=== PATIENT | female | born 1995 | race African-American/Black ===

== ENCOUNTER 2016-11-04 15:32 | Emergency (ER) | payer SELFPAY ==
[~2016-11-04] VITALS: Ht 162.6 cm; Wt 56.0 kg
[~2016-11-04 15:32] MED LIST: AMOX500C PO; DICL50TA3 PO
[2016-11-04 15:37] VITALS: BP 151/93; PULSE 88; RESP 14; TEMP 98; O2SAT 98
[2016-11-04 17:26] VITALS: BP 133/75; PULSE 66; RESP 18; TEMP 98.7; O2SAT 100
--- NOTE | 2016-11-04 17:43 | PD ---
HPI Chief Complaint: Abdominal Pain Time Seen by Provider: 17:30 Travel History International Travel<30 days: No Contact w/Intl Traveler<30days: No Traveled to known affect area: No History of Present Illness HPI 21-year-old female complains of nausea vomiting abdominal cramping. Patient has intermittent symptoms since this morning. Patient denies any headache. Patient denies any chest pain or shortness of breath. Patient states that abdominal pain is mild cramping pain intermittent pain diffuse over the abdomen. Patient denies any pain radiation. Patient denies any dysuria or frequency. Patient denies any vaginal discharge or bleeding. Patient states that her last menstruation period was on October 17 and only lasted 3 days instead of normally 5 days. PFSH Past Medical History Anxiety: Yes Depression: Yes Cerebrovascular Accident: Yes (2011 STROKE; SEIZURES) Headaches: Yes Reproductive: Yes (OVARIAN CYST) Respiratory: No Seizures: Yes ?: Unknown LMP: 10/17/16 Past Surgical History Appendectomy: Yes Cholecystectomy: Yes Other Surgery: No Social History Alcohol Use: No Tobacco Use: Yes (/2 PPD) Substance Use: No Allergies-Medications (Allergen,Severity, Reaction): Coded Allergies: Dilaudid (Unverified Allergy, Intermediate, Itching, 10/08/16) Reported Meds & Prescriptions Reported Meds & Active Scripts Active No Active Prescriptions or Reported Medications Review of Systems General / Constitutional: No: Fever Eyes: No: Visual changes HENT: No: Headaches Cardiovascular: No: Chest Pain or Discomfort Respiratory: No: Shortness of Breath Gastrointestinal: Positive: Nausea, Vomiting, Abdominal Pain Genitourinary: No: Dysuria Musculoskeletal: No: Pain Skin: No Rash Neurologic: No: Weakness Psychiatric: No: Depression Endocrine: No: Polydipsia Hematologic/Lymphatic: No: Easy Bruising Physical Exam Narrative GENERAL: Well-nourished, well-developed patient. SKIN: Warm and dry. HEAD: Normocephalic. EYES: No scleral icterus. No injection or drainage. NECK: Supple, trachea midline. No JVD or lymphadenopathy. CARDIOVASCULAR: Regular rate and rhythm without murmurs, gallops, or rubs. RESPIRATORY: Breath sounds equal bilaterally. No accessory muscle use. GASTROINTESTINAL: Abdomen soft, non-tender, nondistended. MUSCULOSKELETAL: No cyanosis, or edema. BACK: Nontender without obvious deformity. No CVA tenderness. Neurologic exam normal. Data Data Last Documented VS Vital Signs Date Time Temp Pulse Resp B/P Pulse Ox O2 Delivery O2 Flow Rate FiO2 11/04/16 17:32 18 11/04/16 17:26 98.7 66 133/75 100 Orders Urinalysis - C+S If Indicated (11/04/16 17:42) Ed Urine Pregnancytest Poc (11/04/16 17:42) [facility] Medical Decision Making Medical Screen Exam Complete: Yes Emergency Medical Condition: Yes Interpretation(s) Urine test negative. Differential Diagnosis Differential diagnosis including gastroenteritis, , UTI, gastritis, PUD , pancreatitis, cholecystitis, colitis, UTI, pyelonephritis, nephrolithiasis, appendicitis. Narrative Course 21-year-old female with intermittent abdominal cramping and nausea vomiting. The symptoms started this morning. Diagnosis Primary Impression: Gastroenteritis Patient Instructions: General Instructions Additional Instructions: Take medication as needed. Follow-up with personal physician. Return if persistent problem or worse. Med/Other Pt SpecificInfo: Prescription(s) given Scripts Dicyclomine (Bentyl)20 Mg Tab20 Mg PO TID #10 TAB Ref 0 Prov:Mitchell Gomez MD 11/04/16 Ondansetron Odt (Zofran Odt)4 Mg Tab4 Mg SL Q6HR PRN (Nausea/Vomiting) #10 TAB Prov:Mitchell Gomez MD 11/04/16 Disposition: 01 DISCHARGE HOME Condition: Stable Mitchell Gomez MD Nov 04, 2016 17:43
[2016-11-04] MEDS ORDERED: BENT20TA PO (18:20)
[2016-11-04] MEDS ORDERED: ZOFR4TAB3 SL (18:20)
[2016-11-04 18:22] LABS: BLOOD, URINE NEG (NEG); COMMENT (UR) CULT NOT INDICATED; CULTURE IF INDICATED CULT NOT INDICATED; GLUCOSE,URINE NEG (NEG); KETONE, URINE NEG (NEG); MUCUS URINE MANY /lpf (OCC); NITRITE,URINE NEG (NEG); SQUAMOUS EPITHELIAL CELL URINE 6 /hpf (0-5); URINE COLOR YELLOW (YELLW/STRAW)
== END 2016-11-04 18:58 | disposition home or self-care (01) ==
LOC: NEPA 15:32
DX: K52.9 Noninfective gastroenteritis and colitis, unspecified (principal); R10.9 Unspecified abdominal pain; F17.210 Nicotine dependence, cigarettes, uncomplicated
CPT/HCPCS: 81001; 84703; 99284

== ENCOUNTER 2016-12-17 16:48 | Emergency (ER) | payer SELFPAY ==
[~2016-12-17] VITALS: Ht 162.6 cm; Wt 55.0 kg
[~2016-12-17 16:48] MED LIST changes: -AMOX500C PO; +BENT20TA PO; -DICL50TA3 PO; +ZOFR4TAB3 SL
[2016-12-17 16:50] VITALS: PULSE 80; RESP 16; TEMP 98; O2SAT 98
[2016-12-17 16:53] VITALS: BP 131/90; PULSE 85; RESP 16; O2SAT 98
--- NOTE | 2016-12-17 17:18 | PD ---
HPI Chief Complaint: Fall Time Seen by Provider: 17:10 Travel History International Travel<30 days: No Contact w/Intl Traveler<30days: No Traveled to known affect area: No History of Present Illness HPI 21-year-old female presents for evaluation of back pain. She reports that 3 days ago she was dancing a pole when she fell, landing on her back. Since then she has had persistent pain in her mid and lower back which is aching and worse with movement. She has been using [id number] topical anesthetics but symptoms persist which prompted evaluation. She denies any injury to the extremities, no numbness or tingling or weakness to the extremities, bowel or bladder incontinence or saddle anesthesia. She has no other complaints. [facility] Past Medical History Anxiety: Yes Depression: Yes Cerebrovascular Accident: Yes (2011 STROKE; SEIZURES) Diminished Hearing: No Headaches: Yes Reproductive: Yes (OVARIAN CYST) Respiratory: No Seizures: Yes Tetanus Vaccination: Unknown Influenza Vaccination: No ?: Not LMP: 12/14/16 Past Surgical History Appendectomy: Yes Cholecystectomy: Yes Other Surgery: No Social History Alcohol Use: Yes Tobacco Use: Yes (10/23 PPD) Substance Use: No Allergies-Medications (Allergen,Severity, Reaction): Coded Allergies: Dilaudid (Unverified Allergy, Intermediate, Itching, 12/17/16) Reported Meds & Prescriptions Reported Meds & Active Scripts Active Ibuprofen 800 Mg Tab 800 Mg PO Q8H PRN 10 Days Review of Systems Except as stated in HPI: all other systems reviewed are Neg Physical Exam Narrative GENERAL: Well-nourished female in no acute distress SKIN: Warm and dry. Bruising or soft tissue swelling HEAD: Atraumatic. Normocephalic. EYES: Pupils equal and round. No scleral icterus. No injection or drainage. ENT: No nasal bleeding or discharge. Mucous membranes pink and moist. NECK: Trachea midline. No JVD. CARDIOVASCULAR: Regular rate and rhythm. No murmur appreciated. RESPIRATORY: No accessory muscle use. Clear to auscultation. Breath sounds equal bilaterally. GASTROINTESTINAL: Abdomen soft, non-tender, nondistended. MUSCULOSKELETAL: No obvious deformities mild tenderness to palpation along the mid and lower back. No CVA tenderness. No cervical midline tenderness. Full spontaneous use of the upper and lower extremities. NEUROLOGICAL: Awake and alert. No obvious cranial nerve deficits. Motor grossly within normal limits. Normal speech. Data Data Last Documented VS Vital Signs Date Time Temp Pulse Resp B/P Pulse Ox O2 Delivery O2 Flow Rate FiO2 12/17/16 16:53 85 16 131/90 98 12/17/16 16:50 98.0 Room Air Orders Spine, Lumbar - Ltd (Ap & Lat) (12/17/16 ) Spine, Thoracic-Ap/Lat/Sw(3vw) (12/17/16 ) MDM Medical Decision Making Medical Screen Exam Complete: Yes Emergency Medical Condition: Yes Medical Record Reviewed: Yes Interpretation(s) Thoracic spine x-ray dextroscoliosis, no acute abnormalities Lumbar spine x-ray normal Differential Diagnosis Contusion, strain, hematoma, fracture Narrative Course 21-year-old female presents 3 days after falling off of a pole with mid and lower back pain. X-ray imaging the thoracic and lumbar spine were obtained. X- ray imaging was negative. The patient is being discharged with ibuprofen for what appears to be a back strain. Diagnosis Primary Impression: Back strain Qualified Code: S39.012A - Back strain, initial encounter Additional Instructions: Take medication as prescribed. Take with meals. Avoid strenuous activity. Follow-up with primary care physician in one to 2 weeks. Return for any emergent medical conditions. Med/Other Pt SpecificInfo: Prescription(s) given Scripts Ibuprofen 800 Mg [id number] Mg PO Q8H PRN (PAIN SCALE 6 TO 10) 10 Days Ref 0 Prov:Gt Ruiz MD 12/17/16 Disposition: 01 DISCHARGE HOME Condition: Stable Santosh Mccurdy Dec 17, 2016 17:18
--- NOTE | 2016-12-17 17:56 | RADRPT ---
EXAM DATE/TIME: 12/17/2016 17:46 [facility] COMPARISON: No previous studies available for comparison. INDICATIONS : Generalized Thoracic Spine pain after fall. MEDICAL HISTORY : None. SURGICAL HISTORY : None. ENCOUNTER: Initial ACUITY: 3 days PAIN SCORE: 10/10 LOCATION: Thoracic Spine. FINDINGS: There is normal alignment of the thoracic vertebral bodies. Vertebral body height is maintained. No evidence of fracture or subluxation. Pedicles are intact at all levels. Dextroscoliosis of mid to lower thoracic spine. The paravertebral reflections are not thickened. CONCLUSION: Dextroscoliosis mid to lower thoracic spine. Chin Johns MD on December 17, 2016 at 17:53 Board Certified Radiologist. This report was verified electronically.
--- NOTE | 2016-12-17 17:57 | RADRPT ---
EXAM DATE/TIME: 12/17/2016 17:47 [facility] COMPARISON: No previous studies available for comparison. INDICATIONS : Generalized Lumbar Spine pain after fall. MEDICAL HISTORY : None. SURGICAL HISTORY : None. ENCOUNTER: Initial ACUITY: 3 days PAIN SCORE: 10/10 LOCATION: Lumbar Spine. FINDINGS: Two view examination was performed. There are five non-rib bearing vertebral bodies. The vertebral bodies are in normal alignment without evidence of subluxation or scoliosis. The disc spaces are best ntained. The pedicles are intact. Bony mineralization is normal. No fracture is identified. CONCLUSION: Unremarkable limited examination of the lumbar spine. Chin Johns MD on December 17, 2016 at 17:54 Board Certified Radiologist. This report was verified electronically.
[2016-12-17] MEDS ORDERED: IBUP800T23 PO (17:58)
== END 2016-12-17 18:14 | disposition home or self-care (01) ==
LOC: NEPB 16:48
DX: S39.012A Strain of muscle, fascia and tendon of lower back, initial encounter (principal); W18.39XA Other fall on same level, initial encounter; Y93.89 Activity, other specified; Y92.9 Unspecified place or not applicable; F17.210 Nicotine dependence, cigarettes, uncomplicated
CPT/HCPCS: 72072; 72100; 99283

== ENCOUNTER 2017-01-03 19:43 | Emergency (ER) | payer SELFPAY ==
[~2017-01-03] VITALS: Ht 162.6 cm; Wt 51.4 kg
[~2017-01-03 19:43] MED LIST changes: -BENT20TA PO; +IBUP800T23 PO; -ZOFR4TAB3 SL
[2017-01-03 19:45] VITALS: BP 140/70; PULSE 118; RESP 15; TEMP 100.6; O2SAT 99
[2017-01-03 23:36] VITALS: BP 101/75; PULSE 115; RESP 16; TEMP 101.8; O2SAT 95
[2017-01-04] MEDS ORDERED: SODIUM CHLOR 0.9% 1000 ML INJ 1,000 ML IV ONE (00:13)
[2017-01-04] MEDS ORDERED: SODIUM CHLOR 0.9% 1000 ML INJ 800 ML IV ONE (00:13)
[2017-01-04] MEDS ORDERED: ONDANSETRON HCL 4 MG/2 ML VIAL IV ONE (00:15)
[2017-01-04] MEDS ORDERED: ACETAMINOPHEN 325 MG TAB PO ONE (00:15)
[2017-01-04 00:55] LABS: AUTOMATED NEUTROPHIL # 1.8 TH/MM3 (1.8-7.7); BASOPHIL % 0.5 % (0.0-2.0); EOSINOPHIL % 0.4 % (0.0-4.0); HEMATOCRIT 37.4 % (35.0-46.0); HEMO FLAGS DIFF FINAL; LYMPH % 28.8 % (9.0-44.0); MEAN CELL VOLUME 90.8 FL (80.0-100.0); MEAN CORPUSCULAR HEMOGLOBIN 31.2 PG (27.0-34.0); MEAN CORPUSCULAR HGB CONC 34.3 % (32.0-36.0); MONO % 14.8 % (0.0-8.0); NEUT % 55.5 % (16.0-70.0); PLATELET COUNT 218 TH/MM3 (150-450); RED BLOOD COUNT 4.12 MIL/MM3 (4.00-5.30); RED CELL DISTRIBUTION WIDTH 12.6 % (11.6-17.2); WHITE BLOOD COUNT 3.3 TH/MM3 (4.0-11.0)
[2017-01-04 01:11] LABS: BLOOD, URINE NEG (NEG); GLUCOSE,URINE NEG (NEG); HYALINE CAST, URINE 1 /lpf (RARE); KETONE, URINE TRACE mg/dL (NEG); MUCUS URINE FEW /lpf (OCC); NITRITE,URINE NEG (NEG); SQUAMOUS EPITHELIAL CELL URINE 7 /hpf (0-5); URINE COLOR YELLOW (YELLW/STRAW)
[2017-01-04 01:13] LABS: COMMENT (UR) CATH-CULT NOT IND; CULTURE IF INDICATED CATH CULTURE NOT IND
--- NOTE | 2017-01-04 01:13 | RADRPT ---
EXAM DATE/TIME: 01/04/2017 00:32 [facility] COMPARISON: No previous studies available for comparison. INDICATIONS : Fever. Congestion. MEDICAL HISTORY : None. SURGICAL HISTORY : None. ENCOUNTER: Initial ACUITY: 3 days PAIN SCORE: 6/10 LOCATION: Bilateral chest FINDINGS: Single AP view of the chest. The lungs are clear. Cardiomediastinal silhouette within normal limits. No evidence of pleural effusion or pneumothorax. CONCLUSION: No acute cardiopulmonary disease identified. Jaziel Fletcher MD on January 04, 2017 at 1:11 Board Certified Radiologist. This report was verified electronically.
[2017-01-04 01:18] LABS: ALT (GPT) 14 U/L (10-53); ANION GAP 11 MEQ/L (5-15); AST (GOT) 14 U/L (15-37); BLOOD UREA NITROGEN 7 MG/DL (7-18); CHLORIDE 98 MEQ/L (98-107); GLOMERULAR FILTRATION RATE 139 ML/MIN (>89); MAGNESIUM 1.7 MG/DL (1.5-2.5); POTASSIUM 3.8 MEQ/L (3.5-5.1); SODIUM (NA) 133 MEQ/L (136-145)
[2017-01-04 01:20] LABS: ALKALINE PHOSPHATASE 59 U/L (45-117); TOTAL BILIRUBIN ADULT 0.4 MG/DL (0.2-1.0)
[2017-01-04] MEDS ORDERED: BACT800T5 PO (01:28)
[2017-01-04] MEDS ORDERED: OSEL75 PO (01:28)
--- NOTE | 2017-01-04 01:29 | PD ---
HPI Chief Complaint: Cold / Flu Symptoms Time Seen by Provider: 23:49 Travel History International Travel<30 days: No Contact w/Intl Traveler<30days: No Traveled to known affect area: No History of Present Illness HPI Patient is 21 years old. She arrives with body aches and fever. She's had an occasional cough. Nausea and occasional vomiting reported. She's had no urinary complaint vaginal bleeding or vaginal discharge. She's had no rash. Last menstruation was about 2 and half weeks ago. She reports the remote history of seizures and has a remote history of TIAs as well. She has no neurologic deficit. [facility], [facility] Past Medical History Anxiety: Yes Depression: Yes Cerebrovascular Accident: Yes (2011 STROKE; SEIZURES) Diminished Hearing: No Headaches: Yes Reproductive: Yes (OVARIAN CYST) Respiratory: No Seizures: Yes Tetanus Vaccination: Unknown Influenza Vaccination: No ?: Not LMP: 12/16/16 Past Surgical History Appendectomy: Yes Cholecystectomy: Yes Other Surgery: No Social History Alcohol Use: No Tobacco Use: Yes (<1/2 PPD) Substance Use: No Allergies-Medications (Allergen,Severity, Reaction): Coded Allergies: Dilaudid (Verified Allergy, Intermediate, Itching, 01/03/17) Reported Meds & Prescriptions Reported Meds & Active Scripts Active Review of Systems Except as stated in HPI: all other systems reviewed are Neg General / Constitutional: Positive: Fever Gastrointestinal: Positive: Nausea, Vomiting Physical Exam Narrative GENERAL: 21-year-old female pleasant well-nourished well-developed SKIN: Warm and dry. HEAD: Atraumatic. Normocephalic. EYES: Pupils equal and round. No scleral icterus. No injection or drainage. ENT: No nasal bleeding or discharge. Mucous membranes pink and moist. NECK: Trachea midline. No JVD. CARDIOVASCULAR: Regular rate and rhythm. No murmur appreciated. RESPIRATORY: No accessory muscle use. Clear to auscultation. Breath sounds equal bilaterally. GASTROINTESTINAL: Abdomen soft, non-tender, nondistended. Hepatic and splenic margins not palpable. MUSCULOSKELETAL: No obvious deformities. No clubbing. No cyanosis. No edema. NEUROLOGICAL: Awake and alert. No obvious cranial nerve deficits. Motor grossly within normal limits. Normal speech. PSYCHIATRIC: Appropriate mood and affect; insight and judgment normal. Data Data Last Documented VS Vital Signs Date Time Temp Pulse Resp B/P Pulse Ox O2 Delivery O2 Flow Rate FiO2 3/15/17 23:36 101.8 115 16 101/75 95 Room Air Vital signs reviewed Orders Complete Blood Count With Diff (01/04/17 00:13) Comprehensive Metabolic Panel (01/04/17 00:13) Lactic Acid Sepsis Protocol (01/04/17 00:13) Magnesium (Mg) (01/04/17 00:13) Urinalysis - C+S If Indicated (01/04/17:13) Influenzae A/B Antigen (01/04/17:13) Blood Culture (01/04/17:13) Chest, Single Ap (01/04/17 00:13) Blood Glucose (01/04/17:13) Ecg Monitoring (01/04/17:) Iv Access Insert/Monitor (01/04/17:13) Oximetry (01/04/17:13) Oxygen Administration (01/04/17 00:13) Acetaminophen (Tylenol) (01/04/17 00:15) Ondansetron Inj (Zofran Inj) (01/04/17 00:15) Sodium Chlor 0.9% 1000 Ml Inj (Ns 1000 M (01/04/17 00:13) Sodium Chlor 0.9% 1000 Ml Inj (Ns 1000 M (01/04/17 00:13) Ed Urine Pregnancytest Poc (01/04/17 00:13) Labs Laboratory Tests Test 01/03/17 01/04/17 01/04/17 23:55 00:25 00:50 White Blood Count 3.3 TH/MM3 Red Blood Count 4.12 MIL/MM3 Hemoglobin 12.8 GM/DL Hematocrit 37.4 % Mean Corpuscular Volume 90.8 FL Mean Corpuscular Hemoglobin 31.2 PG Mean Corpuscular Hemoglobin 34.3 % Concent Red Cell Distribution Width 12.6 % Platelet Count 218 TH/MM3 Mean Platelet Volume 8.6 FL Neutrophils (%) (Auto) 55.5 % Lymphocytes (%) (Auto) 28.8 % Monocytes (%) (Auto) 14.8 % Eosinophils (%) (Auto) 0.4 % Basophils (%) (Auto) 0.5 % Neutrophils # (Auto) 1.8 TH/MM3 Lymphocytes # (Auto) 1.0 TH/MM3 Monocytes # (Auto) 0.5 TH/MM3 Eosinophils # (Auto) 0.0 TH/MM3 Basophils # (Auto) 0.0 TH/MM3 CBC Comment DIFF FINAL Differential Comment Sodium Level 133 MEQ/L Potassium Level 3.8 MEQ/L Chloride Level 98 MEQ/L Carbon Dioxide Level 24.0 MEQ/L Anion Gap 11 MEQ/L Blood Urea Nitrogen 7 MG/DL Creatinine 0.65 MG/DL Estimat Glomerular Filtration 139 ML/MIN Rate Random Glucose 86 MG/DL Calcium Level 8.2 MG/DL Magnesium Level 1.7 MG/DL Total Bilirubin 0.4 MG/DL Aspartate Amino Transf 14 U/L (AST/SGOT) Alanine Aminotransferase 14 U/L (ALT/SGPT) Alkaline Phosphatase 59 U/L Total Protein 6.7 GM/DL Albumin 3.4 GM/DL Lactic Acid Level 0.7 mmol/L Urine Color YELLOW Urine Turbidity HAZY Urine pH 7.0 Urine Specific [place] 1.010 Urine Protein NEG mg/dL Urine Glucose (UA) NEG mg/dL Urine Ketones TRACE mg/dL Urine Occult Blood NEG Urine Nitrite NEG Urine Bilirubin NEG Urine Urobilinogen LESS THAN 2.0 MG/DL Urine Leukocyte Esterase SMALL Urine RBC 1 /hpf Urine WBC 9 /hpf Urine Squamous Epithelial 7 /hpf Cells Urine Hyaline Casts 1 /lpf Urine Mucus FEW /lpf Microscopic Urinalysis Comment CATH-CULT NOT IND MDM Medical Decision Making Medical Screen Exam Complete: Yes Emergency Medical Condition: Yes Medical Record Reviewed: Yes Differential Diagnosis Influenza, UTI, anemia, electrolyte imbalance Narrative Course CBC & BMP Diagram 01/03/17 23:55 LFTs normal Lactic acid 0.7 Urinalysis could reflect UTI ED urine negative Last 24 hours Impressions Chest X-Ray 01/04/17 0013 Signed Impressions: Service Date/Time: , January 04, 2017 00:32 - CONCLUSION: No acute cardiopulmonary disease identified. Jaziel Fletcher MD Microbiology reveals a positive flu antigen study The patient has received 2 L of crystalloid as well as Tylenol. We'll send her home with Tamiflu and Bactrim. Diagnosis Primary Impression: Influenza Additional Impression: Cystitis Referrals: Primary Care Physician 2 days Additional Instructions: You have a choice when it comes to health care, and we are glad that you chose [facility]. Hopefully, we have met your expectations on today's visit. You are welcome to return to [facility] at any time, as we are committed to meeting the health care needs of our community. Med/Other Pt SpecificInfo: Prescription(s) given Scripts Sulfamethoxazole-Trimethoprim (Bactrim DS)800-160 Mg Tab1 Tab PO BID #6 TAB Ref 0 Prov:Allan Spaulding MD 01/04/17 Oseltamivir (Tamiflu)75 Mg Cap75 Mg PO DAILY 7 Days Ref 0 Prov:Allan Spaulding MD 01/04/17 Disposition: 01 DISCHARGE HOME Condition: Stable lAlan Spaulding MD Jan 04, 2017 01:29
[2017-01-04] MEDS ORDERED: OSELTAMIVIR PHOSPHATE 75 MG CAP PO ONE (01:30)
[2017-01-04] MEDS ORDERED: SULFAMETHOXAZOLE-TRIMETHOPRIM DS 800-160 MG TAB PO ONE (01:30)
== END 2017-01-04 02:28 | disposition home or self-care (01) ==
LOC: NEPE 19:43
DX: J09.X9 Influenza due to identified novel influenza A virus with other manifestations (principal)
CPT/HCPCS: 71010; 80053; 81001; 83605; 83735; 84703; 85025; 87040; 87804; 96361; 96374; 99283; J2405; J7030

== ENCOUNTER 2017-01-30 05:55 | Emergency (ER) | payer SELFPAY ==
[~2017-01-30] VITALS: Ht 170.2 cm; Wt 55.0 kg
[~2017-01-30 05:55] MED LIST changes: +BACT800T5 PO; -IBUP800T23 PO; +OSEL75 PO
[2017-01-30 05:57] VITALS: BP 180/106; PULSE 86; RESP 16; TEMP 95.1; O2SAT 99
--- NOTE | 2017-01-30 06:44 | PD ---
HPI Chief Complaint: Seizure Time Seen by Provider: 06:16 Travel History International Travel<30 days: No Contact w/Intl Traveler<30days: No Traveled to known affect area: No History of Present Illness HPI The patient is a 21 year old female who presents to the [facility] emergency department with a history of dysuria with urinary frequency and urgency that began yesterday. The patient reports that she has also had vaginal discharge associated with this. The patient reports that the vaginal discharge is thick and white. She denies any new sexual partners or concerns about sexually transmitted infections. She does report having a history of ovarian cysts. She denies having any flank pain. She reports that she did have an episode of vomiting yesterday. She denies having any fevers or chills. The patient incidentally also reports that she had a seizure yesterday. The patient has a known history of seizure disorder, however she had not had a seizure for years, therefore the seizure medicine that she was previously placed on was discontinued. She is requesting a neurologist for follow-up. She reports that the last neurologist she saw was a pediatric neurologist. The patient denies any recent fevers cough, congestion, neck pain, chest pain, shortness of breath, diarrhea, or other neurologic symptoms. PFS Past Medical History Narrative Medical The patient's past medical history is significant for recurrent pelvic pain, ovarian cyst, anxiety disorder, history of prior stroke, history of seizure disorder, history of depression. Anxiety: Yes Depression: Yes Cerebrovascular Accident: Yes (2011 STROKE; SEIZURES) Diminished Hearing: No Headaches: Yes Reproductive: Yes (OVARIAN CYST) Respiratory: No Seizures: Yes Influenza Vaccination: No ?: Unknown LMP: 01/06/17 Past Surgical History Narrative Surgical The patient's past surgical history is significant for a cholecystectomy, appendectomy. Appendectomy: Yes Cholecystectomy: Yes Other Surgery: No Social History Alcohol Use: No Tobacco Use: Yes (<1/2 PPD) Substance Use: No Allergies-Medications (Allergen,Severity, Reaction): Coded Allergies: Dilaudid (Verified Allergy, Intermediate, Itching, 01/30/17) Reported Meds & Prescriptions Reported Meds & Active Scripts Active Bactrim DS (Sulfamethoxazole-Trimethoprim) 800-160 Mg Tab 1 Tab PO BID Tamiflu (Oseltamivir Phosphate) 75 Mg Cap 75 Mg PO DAILY 7 Days Review of Systems Except as stated in HPI: all other systems reviewed are Neg General / Constitutional: No: Fever Eyes: No: Visual changes HENT: No: Headaches Cardiovascular: No: Chest Pain or Discomfort Respiratory: No: Shortness of Breath Gastrointestinal: No: Abdominal Pain Genitourinary: No: Dysuria Musculoskeletal: No: Pain Skin: No Rash Neurologic: No: Weakness Psychiatric: No: Depression Endocrine: No: Polydipsia Hematologic/Lymphatic: No: Easy Bruising Physical Exam Narrative General: The patient is a well-developed well-nourished female in no acute distress. Head and Neck exam: Head is normocephalic atraumatic. Eyes: EOMI, pupils are equal round and reactive to light. Nose: Midline septum with pink mucous membranes Mouth: Dentition unremarkable. Moist mucus membranes. Posterior oropharynx is not erythematous. No tonsillar hypertrophy. Uvula midline. Airway patent. Neck: No palpable lymphadenopathy. No nuchal rigidity. No thyromegaly. Cardiovascular: Regular rate and rhythm without murmurs, gallops, or rubs. Lungs: Clear to auscultation bilaterally. No wheezes, rhonchi, or rales. Abdomen: Soft, without tenderness to palpation in all 4 quadrants of the abdomen. No guarding, rebound, or rigidity. Normal bowel sounds are audible. No tenderness on palpation of McBurney's point. Extremities: No clubbing, cyanosis, or edema. 2+ pulses in all 4 extremities. Back: No costovertebral angle tenderness to palpation. Neurologic Exam: Grossly nonfocal. Skin Exam: No rash noted. Intact skin that is warm and dry. Gynecologic exam: The patient was placed in the dorsal lithotomy position. Her external genitalia were examined. She had no evidence of rash or lesions. The speculum was placed into her vagina and the cervix was identified. She had a thick white to yellow discharge noted. No cervical friability. On Bimanual exam: she has no cervical motion tenderness. The patient on bimanual examination is noted to have bladder tenderness on palpation. No adnexal tenderness or prominence noted on palpation. No uterine tenderness or enlargement noted on palpation. Data Data Last Documented VS Vital Signs Date Time Temp Pulse Resp B/P Pulse Ox O2 Delivery O2 Flow Rate FiO2 01/30/17 05:57 95.1 86 16 180/106 99 Room Air Orders Gc And Chlamydia Pcr (01/30/17 06:21) Wet Prep Profile (01/30/17 06:21) Urinalysis - C+S If Indicated (01/30/17 06:21) Urine Culture (01/30/17 06:21) Azithromycin Powd Pack (Zithromax Powd P (01/30/17 07:30) Lidocaine 1% Inj (50 Ml) (Xylocaine 1% I (01/30/17 07:30) Ceftriaxone Inj (Rocephin Inj) (01/30/17 07:30) Labs Laboratory Tests Test 01/30/17 01/30/17 06:21 06:42 Urine Color YELLOW Urine Turbidity CLOUDY Urine pH 6.0 Urine Specific [place] 1.024 Urine Protein 100 mg/dL Urine Glucose (UA) NEG mg/dL Urine Ketones NEG mg/dL Urine Occult Blood MOD Urine Nitrite NEG Urine Bilirubin NEG Urine Urobilinogen LESS THAN 2.0 MG/DL Urine Leukocyte Esterase LARGE Urine RBC 56 /hpf Urine WBC /hpf Urine Squamous Epithelial 23 /hpf Cells Urine Bacteria FEW /hpf Microscopic Urinalysis Comment CULTURE INDICATED Clue Cells (Wet Prep) NONE SEEN Vaginal Trichomonas (Wet Prep) PRESENT Vaginal Yeast (Wet Prep) NONE SEEN MDM Medical Decision Making Medical Screen Exam Complete: Yes Emergency Medical Condition: Yes Medical Record Reviewed: Yes Differential Diagnosis Gonorrhea, versus chlamydia, versus trichomoniasis, versus bacterial vaginosis, versus yeast vaginitis, versus cystitis Narrative Course During the course of the patients emergency department visit, the patients history, examination, and differential diagnosis were reviewed with the patient. The patient had a vaginal examination done with a wet prep, GC and chlamydia swabs collected. Urine was sent for analysis. The patients laboratory studies were reviewed and remarkable for a urinalysis shows cloudy urine, 100 protein, RBC 66, innumerable WBCs, squamous epithelial cells 23. Culture was indicated. The patient's wet prep was noted to be positive for Trichomonas. The patient was given Rocephin 1 g IM, Zithromax 1 g by mouth. The patient will be discharged home with a prescription for Cipro, Flagyl. The patient was instructed to follow-up with a ib[employer] mainframe developer. The patient was additionally instructed to follow-up with a local neurologist regarding her history of epilepsy. The patient is resting comfortably and feels better, is alert and in no distress. The patients results and examination findings were discussed with the patient. The repeat examination is unremarkable and benign. The history, exam, diagnostic testing, and current condition do not suggest any significant pathology to warrant further testing, continued ED treatment, admission, or surgical evaluation at this point. The vital signs have been stable. The patient does not have uncontrollable pain, intractable vomiting, or other significant symptoms. The patient's condition is stable and appropriate for discharge. The patient will pursue further outpatient evaluation with a primary care physician or other designated or consulting physician as indicated in the discharge instructions. The patient expressed understanding and was agreeable with this plan. Diagnosis Primary Impression: Urinary tract infection Qualified Code: N30.00 - Acute cystitis without hematuria Additional Impressions: Trichomoniasis Seizure disorder Referrals: Marielena Salgado MD 1 week Allyson Peguero MD 2 days Patient Instructions: Epilepsy (ED), General Instructions, Trichomoniasis (ED) , Urinary Tract Infection in Women (ED) Med/Other Pt SpecificInfo: Prescription(s) given Scripts Metronidazole (Flagyl)500 Mg [id number] Mg PO BID 7 Days Ref 0 Prov:Shazia Hernandez MD 01/30/17 Ciprofloxacin (Cipro)500 Mg [id number] Mg PO BID 7 Days Ref 0 Prov:Shazia Hernandez MD 01/30/17 Disposition: 01 DISCHARGE HOME Condition: Stable Shazia Hernandez MD Jan 30, 2017 06:44
[2017-01-30 07:11] LABS: BACTERIA, URINE FEW /hpf; BLOOD, URINE MOD (NEG); GLUCOSE,URINE NEG (NEG); KETONE, URINE NEG (NEG); NITRITE,URINE NEG (NEG); SQUAMOUS EPITHELIAL CELL URINE 23 /hpf (0-5); URINE COLOR YELLOW (YELLW/STRAW)
[2017-01-30 07:13] LABS: COMMENT (UR) CULTURE INDICATED; CULTURE IF INDICATED CULTURE INDICATED
[2017-01-30] MEDS ORDERED: AZITHROMYCIN PWD FOR SUSP 1 GM PACKET PO ONE (07:30)
[2017-01-30] MEDS ORDERED: LIDOCAINE HCL 1% 50 ML VIAL IM ONE (07:30)
[2017-01-30] MEDS ORDERED: METR-1 PO (07:46)
[2017-01-30] MEDS ORDERED: CIPR-9 PO (07:46)
[2017-01-30 08:10] VITALS: BP 110/76
[2017-01-30 10:18] LABS: CHLAMYDIA PCR NOT DETECTED (NOT DETECT); NEISSERIA PCR NOT DETECTED (NOT DETECT)
== END 2017-01-30 08:14 | disposition home or self-care (01) ==
LOC: NEPC 05:55
DX: N30.00 Acute cystitis without hematuria (principal); B96.20 Unspecified Escherichia coli [E. coli] as the cause of diseases classified elsewhere; A59.9 Trichomoniasis, unspecified; G40.909 Epilepsy, unspecified, not intractable, without status epilepticus
CPT/HCPCS: 81001; 87077; 87086; 87186; 87210; 87491; 87591; 96372; 99283; J0696

== ENCOUNTER 2017-03-14 20:54 | Emergency (ER) | payer OTHER ==
[~2017-03-14] VITALS: Ht 162.6 cm; Wt 57.0 kg
[~2017-03-14 20:54] MED LIST changes: +CIPR-9 PO; +METR-1 PO
[2017-03-14 20:56] VITALS: BP 166/78; PULSE 98; RESP 14; TEMP 97.8; O2SAT 98
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
[2017-03-14] MEDS ORDERED: AMOX500C PO (21:30)
[2017-03-14] MEDS ORDERED: HYDR-3533 PO (21:30)
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
[2017-03-14] MEDS ORDERED: CYCLOBENZAPRINE HCL 10 MG TAB PO ONE (22:00)
[2017-03-14] MEDS ORDERED: KETOROLAC TROMETHAMINE 60 MG/2 ML (IM) VIAL IM ONE (22:00)
--- NOTE | 2017-03-14 22:23 | RADRPT ---
EXAM DATE/TIME: 03/14/2017 22:14 [place] COMPARISON: No previous studies available for comparison. INDICATIONS : Cephalgia. RADIATION DOSE: 34.35 CTDIvol (mGy) MEDICAL HISTORY : Seizures. Stroke. SURGICAL HISTORY : None. ENCOUNTER: Initial ACUITY: 4 - 6 days PAIN SCALE: 10/10 LOCATION: cranial TECHNIQUE: Multiple contiguous axial images were obtained of the head. Using automated exposure control and adj ustment of the mA and/or kV according to patient size, radiation dose was kept as low as reasonably a chievable to obtain optimal diagnostic quality images. FINDINGS: There is patchy low attenuation in the bilateral periventricular white matter and frontal centrum maurice iovale, nonspecific though likely nonacute in nature. No signs of intracranial hemorrhage, acute infa rct, or mass. There is left maxillary sinus opacification. There is mild volume loss involving the ce rebellum. CONCLUSION: Patchy white matter disease and volume loss without evidence of acute infarct or hemorrhage. Ashwin Honeycutt MD on March 14, 2017 at 22:21 Board Certified Radiologist. This report was verified electronically.
[2017-03-14] MEDS ORDERED: CYCL1TAB29 PO (22:55)
== END 2017-03-14 23:09 | disposition home or self-care (01) ==
LOC: NEPD 20:54
DX: S16.1XXA Strain of muscle, fascia and tendon at neck level, initial encounter (principal); H53.8 Other visual disturbances; V49.49XA Driver injured in collision with other motor vehicles in traffic accident, initial encounter; Y92.410 Unspecified street and highway as the place of occurrence of the external cause; F17.210 Nicotine dependence, cigarettes, uncomplicated
CPT/HCPCS: 70450; 96372; 99285; J1885

== ENCOUNTER 2017-05-09 12:29 | Emergency (ER) | payer MEDICAID ==
[~2017-05-09] VITALS: Ht 162.6 cm; Wt 50.0 kg
[~2017-05-09 12:29] MED LIST changes: +AMOX500C PO; -BACT800T5 PO; -CIPR-9 PO; +CYCL1TAB29 PO; +HYDR-3533 PO; -METR-1 PO; -OSEL75 PO
[2017-05-09 12:30] VITALS: BP 118/79; PULSE 88; RESP 20; TEMP 97.7; O2SAT 99
[2017-05-09 13:11] LABS: AUTOMATED NEUTROPHIL # 2.4 TH/MM3 (1.8-7.7); BACTERIA, URINE OCC /hpf; BASOPHIL % 0.4 % (0.0-2.0); BLOOD, URINE NEG (NEG); COMMENT (UR) CULT NOT INDICATED; CULTURE IF INDICATED CULT NOT INDICATED; EOSINOPHIL # 0.1 TH/MM3 (0-0.4); EOSINOPHIL % 1.7 % (0.0-4.0); GLUCOSE,URINE NEG (NEG); HEMATOCRIT 42.6 % (35.0-46.0); HEMO FLAGS DIFF FINAL; KETONE, URINE NEG (NEG); LYMPH % 28.2 % (9.0-44.0); MEAN CELL VOLUME 91.1 FL (80.0-100.0); MEAN CORPUSCULAR HEMOGLOBIN 30.9 PG (27.0-34.0); MEAN CORPUSCULAR HGB CONC 33.9 % (32.0-36.0); MONO % 5.3 % (0.0-8.0); MUCUS URINE MOD /lpf (OCC); NEUT % 64.4 % (16.0-70.0); NITRITE,URINE NEG (NEG); PH, URINE 6.5 (5.0-8.5); PLATELET COUNT 198 TH/MM3 (150-450); RED BLOOD COUNT 4.68 MIL/MM3 (4.00-5.30); RED CELL DISTRIBUTION WIDTH 13.6 % (11.6-17.2); SQUAMOUS EPITHELIAL CELL URINE 6 /hpf (0-5); URINE COLOR YELLOW (YELLW/STRAW); WHITE BLOOD COUNT 3.7 TH/MM3 (4.0-11.0)
[2017-05-09 13:39] LABS: BICARBONATE 26.2 MEQ/L (21.0-32.0); POTASSIUM 3.4 MEQ/L (3.5-5.1)
--- NOTE | 2017-05-09 13:45 | PD ---
HPI Chief Complaint: GI Complaint Time Seen by Provider: 13:33 Travel History International Travel<30 days: No Contact w/Intl Traveler<30days: No Traveled to known affect area: No History of Present Illness HPI 22 year old G0 female with a chief complaint of "I keep throwing everything up. " LMP 4 weeks ago. She has had nausea and vomiting for three days. Associated symptoms include chronic headaches and one episode of diarrhea. She denies fever , chills, hematemesis, dysuria, abdominal pain, pelvic pain, vaginal bleeding, vaginal discharge, bloody stools, and melena. She tried peptobismol and zofran without relief. She has a prior history of cholecystectomy and appendectomy 3 years ago. [facility] Past Medical History Anxiety: Yes Depression: Yes Cerebrovascular Accident: Yes (2010 STROKE; SEIZURES) Diminished Hearing: No Headaches: Yes Reproductive: Yes (OVARIAN CYST) Respiratory: No Seizures: Yes ?: Unknown LMP: 04/08/2017 Past Surgical History Appendectomy: Yes Cholecystectomy: Yes Other Surgery: No Social History Alcohol Use: No Tobacco Use: Yes (<1/2 PPD) Substance Use: No Allergies-Medications (Allergen,Severity, Reaction): Coded Allergies: Dilaudid (Verified Allergy, Intermediate, Itching, 05/09/17) Reported Meds & Prescriptions Reported Meds & Active Scripts Active Zofran (Ondansetron HCl) 4 Mg Tab 4 Mg PO Q6HR PRN Flexeril (Cyclobenzaprine HCl) 10 Mg Tab 10 Mg PO TID Reported Amoxicillin 500 Mg Cap 500 Mg PO TID Lortab (Hydrocodone-Acetaminophen) 5-325 Mg Tab 1 Tab PO Q6H PRN Review of Systems Except as stated in HPI: all other systems reviewed are Neg General / Constitutional: No: Fever, Chills HENT: Positive: Headaches Cardiovascular: No: Chest Pain or Discomfort Respiratory: No: Cough, Shortness of Breath Gastrointestinal: Positive: Nausea, Vomiting, No: Abdominal Pain Genitourinary: No: Urgency, Frequency, Dysuria, Hematuria Skin: No Rash Physical Exam Narrative GENERAL: Well-developed thin, no obvious distress. SKIN: Focused skin assessment warm/dry. HEAD: Atraumatic. Normocephalic. EYES: Pupils equal and round. No scleral icterus. No injection or drainage. ENT: No nasal bleeding or discharge. Mucous membranes pink and moist. NECK: Trachea midline. No JVD. CARDIOVASCULAR: Regular rate and rhythm. No murmur appreciated. RESPIRATORY: No accessory muscle use. Clear to auscultation. Breath sounds equal bilaterally. GASTROINTESTINAL: Abdomen soft, non-tender, nondistended. Hepatic and splenic margins not palpable. No rebound no percussive tenderness, no CVA tenderness. MUSCULOSKELETAL: No obvious deformities. No clubbing. No cyanosis. No edema. NEUROLOGICAL: Awake and alert. No obvious cranial nerve deficits. Motor grossly within normal limits. Normal speech. PSYCHIATRIC: Appropriate mood and affect; insight and judgment normal. Data Data Last Documented VS Vital Signs Date Time Temp Pulse Resp B/P Pulse Ox O2 Delivery O2 Flow Rate FiO2 05/09/17 14:55 69 18 127/81 100 05/09/17 12:30 97.7 Room Air Orders Complete Blood Count With Diff (05/09/17 12:36) Basic Metabolic Panel (Bmp) (05/09/17 12:36) Urinalysis - C+S If Indicated (05/09/17 12:36) Ed Urine Pregnancytest Poc (05/09/17 12:36) Ibuprofen (Motrin) (05/09/17 14:00) Ondansetron Odt (Zofran Odt) (05/09/17 14:00) Labs Laboratory Tests Test 05/09/17 12:40 White Blood Count 3.7 TH/MM3 Red Blood Count 4.68 MIL/MM3 Hemoglobin 14.4 GM/DL Hematocrit 42.6 % Mean Corpuscular Volume 91.1 FL Mean Corpuscular Hemoglobin 30.9 PG Mean Corpuscular Hemoglobin 33.9 % Concent Red Cell Distribution Width 13.6 % Platelet Count 198 TH/MM3 Mean Platelet Volume 9.7 FL Neutrophils (%) (Auto) 64.4 % Lymphocytes (%) (Auto) 28.2 % Monocytes (%) (Auto) 5.3 % Eosinophils (%) (Auto) 1.7 % Basophils (%) (Auto) 0.4 % Neutrophils # (Auto) 2.4 TH/MM3 Lymphocytes # (Auto) 1.0 TH/MM3 Monocytes # (Auto) 0.2 TH/MM3 Eosinophils # (Auto) 0.1 TH/MM3 Basophils # (Auto) 0.0 TH/MM3 CBC Comment DIFF FINAL Differential Comment Urine Color YELLOW Urine Turbidity HAZY Urine pH 6.5 Urine Specific [place] 1.024 Urine Protein TRACE mg/dL Urine Glucose (UA) NEG mg/dL Urine Ketones NEG mg/dL Urine Occult Blood NEG Urine Nitrite NEG Urine Bilirubin NEG Urine Urobilinogen 2.0 MG/DL Urine Leukocyte Esterase TRACE Urine RBC LESS THAN 1 /hpf Urine WBC 3 /hpf Urine Squamous Epithelial 6 /hpf Cells Urine Bacteria OCC /hpf Urine Mucus MOD /lpf Microscopic Urinalysis Comment CULT NOT INDICATED Sodium Level 141 MEQ/L Potassium Level 3.4 MEQ/L Chloride Level 109 MEQ/L Carbon Dioxide Level 26.2 MEQ/L Anion Gap 6 MEQ/L Blood Urea Nitrogen 6 MG/DL Creatinine 0.78 MG/DL Estimat Glomerular Filtration 112 ML/MIN Rate Random Glucose 82 MG/DL Calcium Level 9.1 MG/DL [facility] Medical Decision Making Medical Screen Exam Complete: Yes Emergency Medical Condition: Yes Differential Diagnosis Gastritis, gastroenteritis, , dehydration, acute abdomen is excluded clinically, . Narrative Course Patient roomed emergency department, she'll basic labs ordered as part of protocol from the triage room. CBC within normal limits, CMP unremarkable, test negative, UA negative. Patient's abdomen is benign there is no indication further workup this time. Discussed symptomatic management home return to ED criteria. Followed up with the [facility] or primary care physician. Diagnosis Primary Impression: Abdominal pain Scripts Ondansetron (Zofran)4 Mg Tab4 Mg PO Q6HR PRN (NAUSEA OR VOMITING) #15 TAB Ref 0 Prov:Gt Ruiz MD 05/09/17 Disposition: 01 DISCHARGE HOME Condition: Stable Gt Ruiz MD May 09, 2017 13:45
[2017-05-09] MEDS ORDERED: ZOFR4TAB PO (13:59)
[2017-05-09] MEDS ORDERED: IBUPROFEN 600 MG TAB PO ONE (14:00)
[2017-05-09] MEDS ORDERED: ONDANSETRON ODT 4 MG TAB PO ONE (14:00)
[2017-05-09 14:55] VITALS: BP 127/81
== END 2017-05-09 14:57 | disposition home or self-care (01) ==
LOC: NEPD 12:29
DX: R10.9 Unspecified abdominal pain (principal); R11.2 Nausea with vomiting, unspecified; F41.9 Anxiety disorder, unspecified; F32.9 Major depressive disorder, single episode, unspecified; Z86.73 Personal history of transient ischemic attack (TIA), and cerebral infarction without residual deficits; R56.9 Unspecified convulsions; F17.200 Nicotine dependence, unspecified, uncomplicated; Z79.899 Other long term (current) drug therapy
CPT/HCPCS: 80048; 81001; 84703; 85025; 99283

== ENCOUNTER 2017-07-24 12:13 | Emergency (ER) | payer OTHER ==
[~2017-07-24] VITALS: Ht 160 cm; Wt 58.0 kg
[~2017-07-24 12:13] MED LIST changes: +ZOFR4TAB PO
[2017-07-24 12:17] VITALS: BP 149/91; PULSE 103; RESP 18; TEMP 99.1; O2SAT 98
--- NOTE | 2017-07-24 12:35 | PD ---
Physical Exam Time Seen by Provider: 12:33 Narrative N/V/D x 1 week. Taken zofran and imodium with no relief. Body aches. Has chest pain following vomiting. She denies fever, chills, hematemesis, dysuria, abdominal pain, pelvic pain, vaginal bleeding, vaginal discharge, bloody stools , and melena. LMP 07/07/2017 Denies chance of . No PCP. Pt seen and evaluated for same April 2017. HX seizures and TIAs Data Data Last Documented VS Vital Signs Date Time Temp Pulse Resp B/P (MAP) Pulse Ox O2 Delivery O2 Flow Rate FiO2 07/24/17 14:28 97.8 59 16 113/74 (87) 100 Room Air Orders Orders Complete Blood Count With Diff (07/24/17 12:35) Comprehensive Metabolic Panel (07/24/17 12:35) Lipase (07/24/17 12:35) Urinalysis - C+S If Indicated (07/24/17 12:35) Ed Urine Pregnancytest Poc (07/24/17 12:35) Ct Brain W/O Iv Contrast(Rout) (07/24/17 12:53) Chest, Single Ap (07/24/17 ) Morphine Inj (Morphine Inj) (07/24/17 13:00) Ondansetron Inj (Zofran Inj) (07/24/17 13:00) Pantoprazole Inj (Protonix Inj) (07/24/17 13:00) Sodium Chlor 0.9% 1000 Ml Inj (Ns 1000 M (07/24/17 12:53) Famotidine Inj (Pepcid Inj) (07/24/17 13:00) Labs Laboratory Tests Test 07/24/17 12:41 White Blood Count 2.5 TH/MM3 Red Blood Count 4.25 MIL/MM3 Hemoglobin 13.1 GM/DL Hematocrit 39.0 % Mean Corpuscular Volume 91.9 FL Mean Corpuscular Hemoglobin 30.7 PG Mean Corpuscular Hemoglobin Concent 33.5 % Red Cell Distribution Width 13.4 % Platelet Count 236 TH/MM3 Mean Platelet Volume 8.5 FL Neutrophils (%) (Auto) 35.0 % Lymphocytes (%) (Auto) 48.4 % Monocytes (%) (Auto) 13.5 % Eosinophils (%) (Auto) 2.4 % Basophils (%) (Auto) 0.7 % Neutrophils # (Auto) 0.9 TH/MM3 Lymphocytes # (Auto) 1.2 TH/MM3 Monocytes # (Auto) 0.3 TH/MM3 Eosinophils # (Auto) 0.1 TH/MM3 Basophils # (Auto) 0.0 TH/MM3 CBC Comment AUTO DIFF Differential Total Cells Counted 100 Neutrophils % (Manual) 39 % Lymphocytes % 47 % Monocytes % 11 % Eosinophils % 3 % Neutrophils # (Manual) 1.0 TH/MM3 Differential Comment FINAL DIFF MANUAL Urine Color YELLOW Urine Turbidity HAZY Urine pH 6.0 Urine Specific [place] 1.022 Urine Protein TRACE mg/dL Urine Glucose (UA) NEG mg/dL Urine Ketones NEG mg/dL Urine Occult Blood NEG Urine Nitrite NEG Urine Bilirubin NEG Urine Urobilinogen LESS THAN 2.0 MG/DL Urine Leukocyte Esterase NEG Urine RBC 3 /hpf Urine WBC 2 /hpf Urine Squamous Epithelial Cells 6 /hpf Urine Mucus FEW /lpf Microscopic Urinalysis Comment CULT NOT INDICATED Blood Urea Nitrogen 8 MG/DL Creatinine 0.72 MG/DL Random Glucose 79 MG/DL Total Protein 6.9 GM/DL Albumin 3.9 GM/DL Calcium Level 8.7 MG/DL Alkaline Phosphatase 71 U/L Aspartate Amino Transf (AST/SGOT) 10 U/L Alanine Aminotransferase (ALT/SGPT) 15 U/L Total Bilirubin 0.6 MG/DL Sodium Level 138 MEQ/L Potassium Level 4.0 MEQ/L Chloride Level 103 MEQ/L Carbon Dioxide Level 28.6 MEQ/L Anion Gap 6 MEQ/L Estimat Glomerular Filtration Rate 123 ML/MIN Lipase 100 U/L [facility] Medical Record Reviewed: Yes Supervised Visit with ELAINA: No Condition: Stable Linda Capellan Jul 24, 2017 12:35
[2017-07-24 12:52] LABS: AUTOMATED NEUTROPHIL # 0.9 TH/MM3 (1.8-7.7); BASOPHIL % 0.7 % (0.0-2.0); EOSINOPHIL # 0.1 TH/MM3 (0-0.4); EOSINOPHIL % 2.4 % (0.0-4.0); LYMPH % 48.4 % (9.0-44.0); LYMPHOCYTE # 1.2 TH/MM3 (1.0-4.8); MEAN CELL VOLUME 91.9 FL (80.0-100.0); MEAN CORPUSCULAR HEMOGLOBIN 30.7 PG (27.0-34.0); MEAN CORPUSCULAR HGB CONC 33.5 % (32.0-36.0); MONO % 13.5 % (0.0-8.0); PLATELET COUNT 236 TH/MM3 (150-450); RED BLOOD COUNT 4.25 MIL/MM3 (4.00-5.30); RED CELL DISTRIBUTION WIDTH 13.4 % (11.6-17.2); WHITE BLOOD COUNT 2.5 TH/MM3 (4.0-11.0)
[2017-07-24 12:53] LABS: HEMO FLAGS AUTO DIFF
[2017-07-24] MEDS ORDERED: SODIUM CHLOR 0.9% 1000 ML INJ 1,000 ML IV SCH (12:53)
[2017-07-24] MEDS ORDERED: PANTOPRAZOLE SODIUM 40 MG VIAL IVP ONE (13:00)
[2017-07-24] MEDS ORDERED: ONDANSETRON HCL 4 MG/2 ML VIAL IVP ONE (13:00)
[2017-07-24] MEDS ORDERED: FAMOTIDINE 20 MG/2 ML VIAL IV PUSH ONE (13:00)
[2017-07-24] MEDS ORDERED: MORPHINE SULFATE 4 MG/ML INJ IV PUSH ONE (13:00)
--- NOTE | 2017-07-24 13:00 | PD ---
HPI Chief Complaint: Abdominal Pain Time Seen by Provider: 12:48 Travel History International Travel<30 days: No Contact w/Intl Traveler<30days: No Traveled to known affect area: No History of Present Illness HPI 22-year-old female that presents to the ED for evaluation of abdominal pain, nausea and vomiting and headaches. As well as chest pain. Patient has had this for about a week now. His been taking Zofran and Imodium with minimal relief. She has not seen her doctor for this. She says she has not doctor. She denies possibility of but she states that she does not know. She denies any urinary issues. Per patient her bowel movements have been liquidy. No blood. She does have a history of stroke and TIAs as well as seizures in the past but takes no medications for them. Per patient she doesn't take anything because she has not neurologist's order follow-up. She hasn't only to hydromorphone. She states that whenever she tries to reach she throws it up. She states that she had her gallbladder as well as her appendix removed. No other surgeries otherwise. No fevers chills or sweats. No other medical issues. She denies any vaginal discharge or pelvic pain. No vaginal bleeding. PFSH Past Medical History Anxiety: Yes Depression: Yes Cerebrovascular Accident: Yes (2011 STROKE; SEIZURES) Diminished Hearing: No Headaches: Yes Reproductive: Yes (OVARIAN CYST) Respiratory: No Seizures: Yes Past Surgical History Appendectomy: Yes Cholecystectomy: Yes Other Surgery: No Social History Alcohol Use: No Tobacco Use: Yes (<1/2 PPD) Substance Use: No Allergies-Medications (Allergen,Severity, Reaction): Coded Allergies: hydromorphone (Verified Allergy, Intermediate, Itching, 07/24/17) Reported Meds & Prescriptions Reported Meds & Active Scripts Active Diclofenac Sodium DR (Diclofenac Sodium) 75 Mg Tabdr 75 Mg PO BID Zantac (Ranitidine HCl) 150 Mg Tab 150 Mg PO BID Phenergan (Promethazine HCl) 25 Mg Tablet 25 Mg PO Q6H PRN Bentyl (Dicyclomine HCl) 10 Mg Cap 10 Mg PO TID PRN Reported Zofran (Ondansetron HCl) 4 Mg Tab 4 Mg PO Q8HR PRN Review of Systems Except as stated in HPI: all other systems reviewed are Neg Physical Exam Narrative GENERAL: SKIN: Warm and dry. HEAD: Atraumatic. Normocephalic. EYES: Pupils equal and round. No scleral icterus. No injection or drainage. ENT: No nasal bleeding or discharge. Mucous membranes pink and moist. Tongue is midline. No uvula deviation. NECK: Trachea midline. No JVD. CARDIOVASCULAR: Regular rate and rhythm. No murmurs, S3, S4. RESPIRATORY: No accessory muscle use. Clear to auscultation. Breath sounds equal bilaterally. GASTROINTESTINAL: Abdomen soft, non-tender, nondistended. Hepatic and splenic margins not palpable. MUSCULOSKELETAL: Extremities without clubbing, cyanosis, or edema. No obvious deformities. Full range of motion of the upper and lower extremities bilaterally. 2+ pulses bilaterally. NEUROLOGICAL: Awake and alert. No obvious cranial nerve deficits. Motor grossly within normal limits. Five out of 5 muscle strength in the arms and legs. Normal speech. PSYCHIATRIC: Appropriate mood and affect; insight and judgment normal. Data Data Last Documented VS Vital Signs Date Time Temp Pulse Resp B/P (MAP) Pulse Ox O2 Delivery O2 Flow Rate FiO2 07/24/17 14:28 97.8 59 16 113/74 (87) 100 Room Air Orders Orders Complete Blood Count With Diff (07/24/17 12:35) Comprehensive Metabolic Panel (07/24/17 12:35) Lipase (07/24/17 12:35) Urinalysis - C+S If Indicated (07/24/17 12:35) Ed Urine Pregnancytest Poc (07/24/17 12:35) Ct Brain W/O Iv Contrast(Rout) (07/24/17 12:53) Chest, Single Ap (07/24/17 ) Morphine Inj (Morphine Inj) (07/24/17 13:00) Ondansetron Inj (Zofran Inj) (07/24/17 13:00) Pantoprazole Inj (Protonix Inj) (07/24/17 13:00) Sodium Chlor 0.9% 1000 Ml Inj (Ns 1000 M (07/24/17 12:53) Famotidine Inj (Pepcid Inj) (07/24/17 13:00) Labs Laboratory Tests Test 07/24/17 12:41 White Blood Count 2.5 TH/MM3 Red Blood Count 4.25 MIL/MM3 Hemoglobin 13.1 GM/DL Hematocrit 39.0 % Mean Corpuscular Volume 91.9 FL Mean Corpuscular Hemoglobin 30.7 PG Mean Corpuscular Hemoglobin Concent 33.5 % Red Cell Distribution Width 13.4 % Platelet Count 236 TH/MM3 Mean Platelet Volume 8.5 FL Neutrophils (%) (Auto) 35.0 % Lymphocytes (%) (Auto) 48.4 % Monocytes (%) (Auto) 13.5 % Eosinophils (%) (Auto) 2.4 % Basophils (%) (Auto) 0.7 % Neutrophils # (Auto) 0.9 TH/MM3 Lymphocytes # (Auto) 1.2 TH/MM3 Monocytes # (Auto) 0.3 TH/MM3 Eosinophils # (Auto) 0.1 TH/MM3 Basophils # (Auto) 0.0 TH/MM3 CBC Comment AUTO DIFF Differential Total Cells Counted 100 Neutrophils % (Manual) 39 % Lymphocytes % 47 % Monocytes % 11 % Eosinophils % 3 % Neutrophils # (Manual) 1.0 TH/MM3 Differential Comment FINAL DIFF MANUAL Urine Color YELLOW Urine Turbidity HAZY Urine pH 6.0 Urine Specific Bogart 1.022 Urine Protein TRACE mg/dL Urine Glucose (UA) NEG mg/dL Urine Ketones NEG mg/dL Urine Occult Blood NEG Urine Nitrite NEG Urine Bilirubin NEG Urine Urobilinogen LESS THAN 2.0 MG/DL Urine Leukocyte Esterase NEG Urine RBC 3 /hpf Urine WBC 2 /hpf Urine Squamous Epithelial Cells 6 /hpf Urine Mucus FEW /lpf Microscopic Urinalysis Comment CULT NOT INDICATED Blood Urea Nitrogen 8 MG/DL Creatinine 0.72 MG/DL Random Glucose 79 MG/DL Total Protein 6.9 GM/DL Albumin 3.9 GM/DL Calcium Level 8.7 MG/DL Alkaline Phosphatase 71 U/L Aspartate Amino Transf (AST/SGOT) 10 U/L Alanine Aminotransferase (ALT/SGPT) 15 U/L Total Bilirubin 0.6 MG/DL Sodium Level 138 MEQ/L Potassium Level 4.0 MEQ/L Chloride Level 103 MEQ/L Carbon Dioxide Level 28.6 MEQ/L Anion Gap 6 MEQ/L Estimat Glomerular Filtration Rate 123 ML/MIN Lipase 100 U/L [facility] Medical Decision Making Medical Screen Exam Complete: Yes Emergency Medical Condition: Yes Medical Record Reviewed: Yes Interpretation(s) CBC & BMP Diagram 07/24/17 12:41 Total Protein 6.9, Albumin 3.9, Calcium Level 8.7, Alkaline Phosphatase 71, Aspartate Amino Transf (AST/SGOT) 10 L, Alanine Aminotransferase (ALT/SGPT) 15, Total Bilirubin 0.6 Lipase WNL UA negative CXR negative CT head negative for acute disease Differential Diagnosis A typical chest pain versus costochondritis versus diarrhea versus gastroenteritis versus nausea and vomiting versus acute abdomen versus gastritis Narrative Course 22-year-old female that presents to the ED for evaluation of nausea vomiting diarrhea and headaches as well as chest pain. Patient was properly examined and was found to have signs and symptoms which appear to be more consistent with gastroenteritis. Patient likely had gastritis like symptoms consistent with chest discomfort. She also complains of headache and per patient she has a history of TIAs and seizures but she was not diagnosed here. It is documented in the medical records. At this time labs and imaging were ordered. Patient was started on IV fluids as well as pain medications and antiemetics. Labs and imaging showed no sign of acute disease. This tenderness appears to be gastroenteritis. Patient was reassured. This time her recommend trial of Phenergan as patient has already tried Zofran with minimal relief and she will be given a prescription for Bentyl to help with her symptoms. She was given a prescription for Zantac as well to help with her chest discomfort which is likely secondary to possible gastritis heartburn. She was told that she needs to follow with her neurologist outpatient as well as a PCP outpatient. She was given information for the outpatient clinic. See ED if worsening symptoms. Follow up with PCP. Drink plenty of fluids. Diagnosis Primary Impression: Gastroenteritis Additional Impressions: Nausea & vomiting Qualified Codes: R11.2 - Nausea with vomiting, unspecified Diarrhea Qualified Codes: R19.7 - Diarrhea, unspecified Patient Instructions: General Instructions Additional Instructions: Take medications as prescribed. Drink plenty of fluids. Your blood work and imaging here was reassuring. Follow-up with clinic outpatient whom might be able to help you find a neurologist for further evaluation of your seizure disorder. See ED if worst. Med/Other Pt SpecificInfo: Prescription(s) given Scripts Diclofenac Sodium (Diclofenac Sodium DR) 75 Mg Tabdr 75 MG PO BID, #20 TAB 0 Refills Prov: Jackie Saenz MD 07/24/17 Ranitidine (Zantac) 150 Mg Tab 150 MG PO BID for Reduce Stomach Acid, #20 TAB 0 Refills Prov: Jackie Saenz MD 07/24/17 Promethazine (Phenergan) 25 Mg Tablet 25 MG PO Q6H Y for NAUSEA OR VOMITING, #15 TAB 0 Refills Prov: Jackie Saenz MD 07/24/17 Dicyclomine (Bentyl) 10 Mg Cap 10 MG PO TID Y for Bowel Management, #20 CAP 0 Refills Prov: Jackie Saenz MD 07/24/17 Disposition: 01 DISCHARGE HOME Condition: Stable Carlos Lord Jul 24, 2017 13:00
[2017-07-24 13:01] LABS: BLOOD, URINE NEG (NEG); COMMENT (UR) CULT NOT INDICATED; CULTURE IF INDICATED CULT NOT INDICATED; GLUCOSE,URINE NEG (NEG); KETONE, URINE NEG (NEG); MUCUS URINE FEW /lpf (OCC); NITRITE,URINE NEG (NEG); SQUAMOUS EPITHELIAL CELL URINE 6 /hpf (0-5); URINE COLOR YELLOW (YELLW/STRAW)
[2017-07-24] MEDS ORDERED: ZOFR4TAB PO (13:04)
[2017-07-24 13:15] LABS: ALT (GPT) 15 U/L (10-53); ANION GAP 6 MEQ/L (5-15); AST (GOT) 10 U/L (15-37); BICARBONATE 28.6 MEQ/L (21.0-32.0); BLOOD UREA NITROGEN 8 MG/DL (7-18); CHLORIDE 103 MEQ/L (98-107); GLOMERULAR FILTRATION RATE 123 ML/MIN (>89); SODIUM (NA) 138 MEQ/L (136-145)
[2017-07-24 13:17] LABS: ALKALINE PHOSPHATASE 71 U/L (45-117); TOTAL BILIRUBIN ADULT 0.6 MG/DL (0.2-1.0)
[2017-07-24 13:25] VITALS: BP 123/81; PULSE 76; RESP 17; TEMP 97.9; O2SAT 100
[2017-07-24 13:31] LABS: EOSINOPHILS 3 % (0-4); POLYS (SEG NEUTROPHILS) 39 % (16-70); SCAN/DIFF FINAL DIFF MANUAL; WBC DIFF SAMPLE 100
--- NOTE | 2017-07-24 13:54 | RADRPT ---
EXAM DATE/TIME: 07/24/2017 13:32 [facility] COMPARISON: CHEST SINGLE AP, January 04, 2017, 0:32. INDICATIONS : Chest pain today. MEDICAL HISTORY : Back problems from [facility] 03/2017 SURGICAL HISTORY : None. ENCOUNTER: Initial ACUITY: 1 day PAIN SCORE: 8/10 LOCATION: Bilateral chest FINDINGS: A single view of the chest demonstrates the lungs to be symmetrically aerated without evidence of mas s, infiltrate or effusion. The cardiomediastinal contours are unremarkable. Mild dextroscoliosis of the thoracic spine. CONCLUSION: 1. No acute cardiaopulmonary disease. Drake Gomez MD on July 24, 2017 at 13:53 Board Certified Radiologist. This report was verified electronically.
[2017-07-24 14:28] VITALS: BP 113/74; PULSE 59; RESP 16; TEMP 97.8; O2SAT 100
--- NOTE | 2017-07-24 15:10 | RADRPT ---
EXAM DATE/TIME: 07/24/2017 14:50 [facility] COMPARISON: CT BRAIN W/O CONTRAST, March 14, 2017, 22:14. INDICATIONS : Cephalgia. RADIATION DOSE: 28.35 CTDIvol (mGy) MEDICAL HISTORY : Cerebrovascular disease. Seizures. SURGICAL HISTORY : Appendectomy. Cholecystectomy. ENCOUNTER: Initial ACUITY: 1 day PAIN SCALE: 10/10 LOCATION: cranial TECHNIQUE: Multiple contiguous axial images were obtained of the head. Using automated exposure control and adj ustment of the mA and/or kV according to patient size, radiation dose was kept as low as reasonably a chievable to obtain optimal diagnostic quality images. DICOM format image data is available electro nically for review and comparison. FINDINGS: CEREBRUM: The ventricles are normal for age. No evidence of midline shift, mass lesion, hemorrhage or acute in farction. No extra-axial fluid collections are seen. POSTERIOR FOSSA: The cerebellum and brainstem are intact. The 4th ventricle is midline. The cerebellopontine angle i s unremarkable. EXTRACRANIAL: The visualized portion of the orbits is intact. SKULL: The calvaria is intact. No evidence of skull fracture. CONCLUSION: 1. No evidence of acute intracranial pathology. No masses are identified. Brendan Gonzalez MD on July 24, 2017 at 15:08 Board Certified Radiologist. This report was verified electronically.
[2017-07-24] MEDS ORDERED: DICY10 PO (15:13)
[2017-07-24] MEDS ORDERED: PROM25TA10 PO (15:13)
[2017-07-24] MEDS ORDERED: ZANT150T2 PO (15:22)
[2017-07-24] MEDS ORDERED: DICL75TA PO (15:27)
[2017-07-24 15:28] VITALS: BP 122/81; TEMP 97.8
[2017-07-24] MEDS ORDERED: HYDR-3533 PO (15:29)
[2017-07-24] MEDS ORDERED: CIPR-9 PO (15:29)
== END 2017-07-24 15:30 | disposition home or self-care (01) ==
LOC: NEPC 12:13
DX: K52.9 Noninfective gastroenteritis and colitis, unspecified (principal); R51 Headache; F17.200 Nicotine dependence, unspecified, uncomplicated
CPT/HCPCS: 70450; 71010; 80053; 81001; 83690; 84703; 85007; 85027; 96361; 96374; 96375; 99285; C9113; J2270; J2405; J7030

== ENCOUNTER 2017-08-23 17:39 | Emergency (ER) | payer OTHER ==
[~2017-08-23] VITALS: Ht 162.6 cm; Wt 46.0 kg
[~2017-08-23 17:39] MED LIST changes: -AMOX500C PO; +CIPR-9 PO; -CYCL1TAB29 PO; +DICY10 PO; +PROM25TA10 PO; +ZANT150T2 PO
[2017-08-23 17:41] VITALS: BP 123/86; PULSE 102; RESP 14; TEMP 98.1; O2SAT 100
--- NOTE | 2017-08-23 18:49 | RADRPT ---
EXAM DATE/TIME: 08/23/2017 18:30 [facility] COMPARISON: No previous studies available for comparison. INDICATIONS : Left knee pain, twisted MEDICAL HISTORY : None. SURGICAL HISTORY : None. ENCOUNTER: Initial ACUITY: 3 days PAIN SCORE: 6/10 LOCATION: Left Knee FINDINGS: Four view examination of the left knee demonstrates no evidence of fracture or dislocation. Bony min eralization is normal. The articular surfaces are intact. The suprapatellar soft tissues have a nor mal configuration. CONCLUSION: Negative trauma study. Sree Rowe MD on August 23, 2017 at 18:46 Board Certified Radiologist. This report was verified electronically.
--- NOTE | 2017-08-23 18:53 | PD ---
HPI . 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 This was a mechanical fall as the patient tripped and fell. Patient denies losing consciousness during the fall. Patient denies any other injuries associated with a fall outside the left knee pain. She is ambulatory with a limp. The left leg is neurovascularly intact. PFSH Past Medical History Anxiety: Yes Depression: Yes Cerebrovascular Accident: Yes (stroke) Diminished Hearing: No Headaches: Yes Neurologic: Yes Reproductive: Yes (OVARIAN CYST) Respiratory: No Seizures: Yes ?: Not LMP: 07/2017 : 0 Miscarriage: 0 : 0 Past Surgical History Appendectomy: Yes Cholecystectomy: Yes Other Surgery: No Social History Alcohol Use: No Tobacco Use: Yes (<1/2 PPD) Substance Use: No Allergies-Medications (Allergen,Severity, Reaction): Coded Allergies: hydromorphone (Verified Allergy, Intermediate, Itching, 08/23/17) Reported Meds & Prescriptions Reported Meds & Active Scripts Active Cipro (Ciprofloxacin HCl) 500 Mg Tab 500 Mg PO BID 7 Days Lortab (Hydrocodone-Acetaminophen) 5-325 Mg Tab 1 Tab PO Q6H PRN Zantac (Ranitidine HCl) 150 Mg Tab 150 Mg PO BID Phenergan (Promethazine HCl) 25 Mg Tablet 25 Mg PO Q6H PRN Bentyl (Dicyclomine HCl) 10 Mg Cap 10 Mg PO TID PRN Reported Zofran (Ondansetron HCl) 4 Mg Tab 4 Mg PO Q8HR PRN Review of Systems Except as stated in HPI: all other systems reviewed are Neg Physical Exam Narrative GENERAL: Well-nourished, well-developed 22-year-old female patient in no acute distress. Nontoxic appearing. SKIN: Focused skin assessment warm/dry. HEAD: Normocephalic. Atraumatic EYES: Mary demonstrated bilaterally. No scleral icterus. No injection or drainage. NEUROLOGICAL: Awake and alert. Cranial nerves II through XII intact. Motor and sensory grossly within normal limits. Five out of 5 muscle strength in all muscle groups. Normal speech. NECK: Supple, trachea midline. No JVD or lymphadenopathy. CARDIOVASCULAR: Regular rate and rhythm without murmurs, gallops, or rubs. RESPIRATORY: Breath sounds equal bilaterally. No accessory muscle use. GASTROINTESTINAL: Abdomen soft, non-tender, nondistended. MUSCULOSKELETAL: Left knee tenderness to palpation, no signs of obvious deformity, ecchymosis, edema or erythema. BACK: Nontender without obvious deformity. No CVA tenderness. Data Data Last Documented VS Vital Signs Date Time Temp Pulse Resp B/P (MAP) Pulse Ox O2 Delivery O2 Flow Rate FiO2 08/23/17 17:41 98.1 102 14 123/86 (98) 100 Orders Orders Knee, Complete (4vws) (08/23/17 18:13) Ice/Cold Pack (08/23/17 18:13) Ed Discharge Order (08/23/17 18:53) MDM Medical Decision Making Medical Screen Exam Complete: Yes Emergency Medical Condition: Yes Differential Diagnosis Differential diagnoses include but not limited to left knee sprain, left knee contusion, patellar dislocation Narrative Course 22 year female presents emergency department for evaluation of left knee pain after she fell on it 2 days ago. Patient is a realtor with a limp. The left leg is neurovascularly intact. There is no obvious deformity, ecchymosis, erythema or sinus. X-ray of the left knee ordered and pending. Ice applied to the left knee. X-ray of the left knee shows a a negative trauma study. The Uriel wrapped and patient discharged home with rice therapy instructions. Patient instructed to return the emergency Department as needed and follow up with primary care. Last Impressions Knee X-Ray 08/23/171812 Signed Impressions: Service Date/Time: August 18:30 - CONCLUSION: Negative trauma study. Sree Rowe MD Diagnosis Primary Impression: Knee contusion Qualified Codes: S80.02XA - Contusion of left knee, initial encounter Referrals: Primary Care Physician Patient Instructions: Contusion in Adults (ED), General Instructions Additional Instructions: Please return to emergency department if your symptoms return or worsen. Follow up with your primary care provider. May use ibuprofen as needed for pain or swelling. Right therapy to left knee, rest, ice, Uriel wrap with activity and elevated when resting. Disposition: 01 DISCHARGE HOME Condition: Stable Renata Lozano Aug 23, 2017 18:53
== END 2017-08-23 19:09 | disposition home or self-care (01) ==
LOC: NEPK 17:39
DX: S80.02XA Contusion of left knee, initial encounter (principal); W01.0XXA Fall on same level from slipping, tripping and stumbling without subsequent striking against object, initial encounter; Y93.41 Activity, dancing; Y92.9 Unspecified place or not applicable; Z72.0 Tobacco use; Y99.0 Civilian activity done for income or pay
CPT/HCPCS: 73564; 99283

== ENCOUNTER 2017-10-09 01:21 | Emergency (ER) | payer OTHER ==
[~2017-10-09] VITALS: Ht 162.6 cm; Wt 51.2 kg
[2017-10-09 01:50] VITALS: BP 134/69; PULSE 90; RESP 18; TEMP 99.7; O2SAT 100
[2017-10-09] MEDS ORDERED: SODIUM CHLOR 0.9% 1000 ML INJ 1,000 ML IV ONE (01:53)
[2017-10-09 02:00] VITALS: BP 115/70; PULSE 81; RESP 18; O2SAT 99
[2017-10-09] MEDS ORDERED: PROCHLORPERAZINE INJ 10 MG/2 ML VIAL IVP ONE (02:00)
[2017-10-09] MEDS ORDERED: SODIUM CHLORIDE 0.9% FLUSH 10 ML FLUSH IVF PRN (02:00)
[2017-10-09] MEDS ORDERED: ACETAMINOPHEN 325 MG TAB PO ONE (02:00)
[2017-10-09] MEDS ORDERED: diphenhydrAMINE HCL 50 MG/ML VIAL IVP ONE (02:00)
[2017-10-09] MEDS ORDERED: PROM25TA10 PO (02:43)
--- NOTE | 2017-10-09 02:43 | PD ---
HPI Chief Complaint: Headache Time Seen by Provider: 01:44 Travel History International Travel<30 days: No Contact w/Intl Traveler<30days: No Traveled to known affect area: No History of Present Illness HPI 22-year-old female arrives to the ER complaining of headache with pain most severe overlying the right eye coupled with neck pain and sore throat. Headache has been present for about 3 weeks. The sore throat has been present for about 2 days. She reports chronic neck pain. Her boyfriend massages the neck at home and she takes ibuprofen however the pain has persisted through the interventions. No loss of consciousness. No fever. No cough. PFSH Past Medical History Anxiety: Yes Depression: Yes Cerebrovascular Accident: Yes (stroke) Diminished Hearing: No Headaches: Yes Neurologic: Yes Reproductive: Yes (OVARIAN CYST) Respiratory: No Seizures: Yes Influenza Vaccination: No ?: Not LMP: 09/14/2017 : 0 Miscarriage: 0 : 0 Past Surgical History Appendectomy: Yes Cholecystectomy: Yes Other Surgery: No Social History Alcohol Use: Yes (Ocassional) Tobacco Use: Yes (<1/2 PPD) Substance Use: No Allergies-Medications (Allergen,Severity, Reaction): Coded Allergies: hydromorphone (Verified Allergy, Intermediate, Itching, 10/09/17) Reported Meds & Prescriptions Reported Meds & Active Scripts Active Cipro (Ciprofloxacin HCl) 500 Mg Tab 500 Mg PO BID 7 Days Zantac (Ranitidine HCl) 150 Mg Tab 150 Mg PO BID Phenergan (Promethazine HCl) 25 Mg Tablet 25 Mg PO Q6H PRN Bentyl (Dicyclomine HCl) 10 Mg Cap 10 Mg PO TID PRN Reported Zofran (Ondansetron HCl) 4 Mg Tab 4 Mg PO Q8HR PRN Review of Systems Except as stated in HPI: all other systems reviewed are Neg General / Constitutional: No: Fever Cardiovascular: No: Chest Pain or Discomfort Physical Exam Narrative GENERAL: 2-year-old female pleasant well-nourished well-developed SKIN: Focused skin assessment warm/dry. HEAD: Atraumatic. Normocephalic. EYES: Pupils equal and round. No scleral icterus. No injection or drainage. ENT: No nasal bleeding or discharge. Mucous membranes pink and moist. Posterior oropharynx is pink without tonsillar exudate or asymmetry or deviation of the soft palate. NECK: Trachea midline. No JVD. Rotation and flexion-extension of the neck are normal. CARDIOVASCULAR: Regular rate and rhythm. No murmur appreciated. RESPIRATORY: No accessory muscle use. Clear to auscultation. Breath sounds equal bilaterally. GASTROINTESTINAL: Abdomen soft, non-tender, nondistended. Hepatic and splenic margins not palpable. MUSCULOSKELETAL: No obvious deformities. No clubbing. No cyanosis. No edema. NEUROLOGICAL: Awake and alert. No obvious cranial nerve deficits. Motor grossly within normal limits. Normal speech. PSYCHIATRIC: Appropriate mood and affect; insight and judgment normal. Data Data Last Documented VS Vital Signs Date Time Temp Pulse Resp B/P (MAP) Pulse Ox O2 Delivery O2 Flow Rate FiO2 10/09/17 02:27 81 18 99 Room Air 10/09/17 02:00 115/70 (85) 10/09/17 01:50 99.7 Vital signs reviewed Orders Orders Ecg Monitoring (10/09/17 01:53) Iv Access Insert/Monitor (10/09/17 01:53) Oximetry (10/09/17 01:53) Sodium Chloride 0.9% Flush (Ns Flush) (10/09/17 02:00) Acetaminophen (Tylenol) (10/09/17 02:00) Prochlorperazine Inj (Compazine Inj) (10/09/17 02:00) Diphenhydramine Inj (Benadryl Inj) (10/09/17 02:00) Sodium Chlor 0.9% 1000 Ml Inj (Ns 1000 M (10/09/17 01:53) MDM Medical Decision Making Medical Screen Exam Complete: Yes Emergency Medical Condition: Yes Medical Record Reviewed: Yes Differential Diagnosis Migraine, cervicalgia, tension headache, aneurysm, meningitis Narrative Course Benadryl Compazine and IV fluids and Tylenol given. The patient reports resolution of pain. Etiology of the sore throat neck discomfort and headache is unclear however is considered very unlikely to be related to meningitis and/ or aneurysm or neurologic/neurosurgical emergency otherwise. Diagnosis Primary Impression: Cervicalgia Additional Impression: Cephalgia Qualified Codes: R51 - Headache Referrals: Primary Care Physician call for appointment Med/Other Pt SpecificInfo: Prescription(s) given Scripts Promethazine (Phenergan) 25 Mg Tablet 25 MG PO Q6H Y for HEADACHE, #10 TAB 0 Refills Prov: Allan Spaulding MD 10/09/17 Disposition: 01 DISCHARGE HOME Condition: Stable Allan Spaulding MD Oct 09, 2017 02:43
[2017-10-09] MEDS ORDERED: LIDOCAINE VISCOUS 2% SOLN 15 ML UDC PO ONE (03:00)
[2017-10-09] MEDS ORDERED: ALUMINUM/MAGNESIUM/SIMETH 30 ML CUP PO ONE (03:00)
[2017-10-09 03:43] VITALS: RESP 16
[2017-10-09 04:26] VITALS: BP 100/62
== END 2017-10-09 04:36 | disposition home or self-care (01) ==
LOC: PHED 01:21
DX: M54.2 Cervicalgia (principal); R51 Headache; F17.210 Nicotine dependence, cigarettes, uncomplicated; Z86.73 Personal history of transient ischemic attack (TIA), and cerebral infarction without residual deficits
CPT/HCPCS: 96361; 96374; 96375; 99284; J0780; J1200; J7030

== ENCOUNTER 2017-11-14 02:30 | Emergency (ER) | payer SELFPAY ==
[~2017-11-14] VITALS: Ht 162.6 cm; Wt 50.0 kg
[~2017-11-14 02:30] MED LIST changes: -HYDR-3533 PO
[2017-11-14 02:34] VITALS: BP 139/89; PULSE 92; RESP 16; TEMP 98.1; O2SAT 99
== END 2017-11-14 03:35 | disposition left against medical advice (07) ==
LOC: NEPC 02:30
DX: R51 Headache (principal); Z53.21 Procedure and treatment not carried out due to patient leaving prior to being seen by health care provider
CPT/HCPCS: 99281

== ENCOUNTER 2017-11-24 14:54 | Emergency (ER) | payer SELFPAY ==
[2017-11-24 15:00] VITALS: BP 128/80; PULSE 80; RESP 14; TEMP 98.4; O2SAT 98
[2017-11-24] MEDS ORDERED: PENI500T PO (15:52)
[2017-11-24] MEDS ORDERED: NAPR375T4 PO (15:53)
--- NOTE | 2017-11-24 15:53 | PD ---
HPI Chief Complaint: Oral / Dental Pain or Problem Time Seen by Provider: 15:20 Travel History International Travel<30 days: No Contact w/Intl Traveler<30days: No Traveled to known affect area: No History of Present Illness HPI This is a 22-year-old female who presents to the emergent department with 1 week of dental pain migrating from one side of her mouth to the other feeling sharp and stabbing, constant, moderate severity associated with a little blister that popped earlier this week. She denies any difficulty swallowing but is having trouble chewing. PFSH Past Medical History Anxiety: Yes Depression: Yes Cerebrovascular Accident: Yes (MULTIPLE TIA) Diminished Hearing: No Headaches: Yes Neurologic: Yes Reproductive: Yes (OVARIAN CYST) Respiratory: No Seizures: Yes : 0 Miscarriage: 0 : 0 Past Surgical History Appendectomy: Yes Cholecystectomy: Yes Other Surgery: No Social History Alcohol Use: Yes (Ocassional) Tobacco Use: Yes (<1/2 PPD) Substance Use: No Allergies-Medications (Allergen,Severity, Reaction): Coded Allergies: hydromorphone (Verified Allergy, Intermediate, Itching, 11/14/17) Reported Meds & Prescriptions Reported Meds & Active Scripts Active Phenergan (Promethazine HCl) 25 Mg Tablet 25 Mg PO Q6H PRN Cipro (Ciprofloxacin HCl) 500 Mg Tab 500 Mg PO BID 7 Days Zantac (Ranitidine HCl) 150 Mg Tab 150 Mg PO BID Phenergan (Promethazine HCl) 25 Mg Tablet 25 Mg PO Q6H PRN Bentyl (Dicyclomine HCl) 10 Mg Cap 10 Mg PO TID PRN Reported Zofran (Ondansetron HCl) 4 Mg Tab 4 Mg PO Q8HR PRN Review of Systems General / Constitutional: No: Fever, Chills Respiratory: No: Cough, Shortness of Breath Physical Exam Narrative GENERAL: Well-appearing, no acute distress, nontoxic SKIN: Warm and dry. HEAD: Atraumatic. Normocephalic. ENT: Right mandibular molar has old fracture, is tender, with swelling around the tooth MUSCULOSKELETAL: No obvious deformities. NEUROLOGICAL: Awake and alert. No obvious cranial nerve deficits. Motor grossly within normal limits. Normal speech. PSYCHIATRIC: Appropriate mood and affect; insight and judgment normal. Data Data Last Documented VS Vital Signs Date Time Temp Pulse Resp B/P (MAP) Pulse Ox O2 Delivery O2 Flow Rate FiO2 11/24/17 15:00 98.4 80 14 128/80 (96) 98 MDM Medical Decision Making Medical Screen Exam Complete: Yes Emergency Medical Condition: Yes Interpretation(s) afebrile, no tachycardia, normotensive Differential Diagnosis Dental caries, dental infection, Emmett's angina Narrative Course This is a very well-appearing 22-year-old female who presents to the emergency department with poor dentition has been giving her pain. She does have localized swelling around the right mandibular molar which appears to be a localized infection. Patient will be discharged on antibiotics and was referred to dentist Diagnosis Primary Impression: Dental caries Patient Instructions: General Instructions Additional Instructions: If you develop fevers, chills, difficulty swallowing or worsening swelling return to the emergency department. Follow up with a dentist as soon as possible. Med/Other Pt SpecificInfo: Prescription(s) given Scripts Naproxen DR (Naproxen EC) 375 Mg Tabdr 375 MG PO BID Y for PAIN SCALE 4 TO 10, #20 TAB 0 Refills Prov: Kathya Ch MD 11/24/17 Penicillin V Potassium (Penicillin V Potassium) 500 Mg Tab 500 MG PO Q8H for Infection for 7 Days, #21 TAB 0 Refills Prov: Kathya Ch MD 11/24/17 Disposition: 01 DISCHARGE HOME Condition: Stable Kathya Ch MD Nov 24, 2017 15:53
== END 2017-11-24 15:58 | disposition home or self-care (01) ==
LOC: NEPD 14:54
DX: K02.9 Dental caries, unspecified (principal); F41.9 Anxiety disorder, unspecified; F32.9 Major depressive disorder, single episode, unspecified; Z86.73 Personal history of transient ischemic attack (TIA), and cerebral infarction without residual deficits; F17.200 Nicotine dependence, unspecified, uncomplicated
CPT/HCPCS: 99283

== ENCOUNTER 2017-12-09 18:25 | Emergency (ER) | payer SELFPAY ==
[~2017-12-09] VITALS: Ht 152.4 cm; Wt 51.0 kg
[~2017-12-09 18:25] MED LIST changes: +NAPR375T4 PO; +PENI500T PO
[2017-12-09 18:31] VITALS: BP 137/95; PULSE 56; RESP 16; TEMP 98.8; O2SAT 100
[2017-12-09] MEDS ORDERED: PENI500T PO (19:57)
[2017-12-09] MEDS ORDERED: MELO15TA20 PO (19:57)
--- NOTE | 2017-12-09 19:58 | PD ---
HPI Chief Complaint: Oral / Dental Pain or Problem Time Seen by Provider: 19:48 Travel History International Travel<30 days: No Contact w/Intl Traveler<30days: No Traveled to known affect area: No History of Present Illness HPI 22 year old female here with dental pain to the right lower molar. she is reporting symptoms returned shortly after stopping antibiotics recently. She has an old decayed and fractured right lower molar which is the source of the pain. She denies fever or chills. She has not followed up with a dentist as instructed. Severity is moderate. No aggravating or alleviating factors. PFSH Past Medical History Hx Anticoagulant Therapy: No Anxiety: Yes Depression: Yes (stopped meds over a year ago) Cerebrovascular Accident: Yes (MULTIPLE TIA) Diabetes: No Diminished Hearing: No Headaches: Yes Neurologic: Yes Reproductive: Yes (OVARIAN CYST) Respiratory: No Seizures: Yes ?: Not LMP: 12/06 : 0 Miscarriage: 0 : 0 Past Surgical History Appendectomy: Yes Cholecystectomy: Yes Other Surgery: No Social History Alcohol Use: Yes (Ocassional) Tobacco Use: Yes (<1/2 PPD) Substance Use: No Allergies-Medications (Allergen,Severity, Reaction): Coded Allergies: hydromorphone (Verified Allergy, Intermediate, Itching, 12/09/17) Reported Meds & Prescriptions Reported Meds & Active Scripts Active Amoxicillin 500 Mg Cap 500 Mg PO TID 7 Days Meloxicam 15 Mg Tab 15 Mg PO DAILY Review of Systems Except as stated in HPI: all other systems reviewed are Neg General / Constitutional: No: Fever HENT: Positive: Dental Difficulties Physical Exam Narrative GENERAL: Alert and well-appearing 22-year-old female. Patient is asleep with her boyfriend both lying on the stretcher when I entered the room. SKIN: Warm and dry. HEAD: Normocephalic. EYES: No injection or drainage. Mouth: Old decayed and fractured right lower molar with mild surrounding gum erythema and edema. No discernible abscess. No swelling of the fourth mouth. Uvula is midline. Airway is patent. NECK: Supple. No lymphadenopathy. Data Data Last Documented VS Vital Signs Date Time Temp Pulse Resp B/P (MAP) Pulse Ox O2 Delivery O2 Flow Rate FiO2 12/09/17 18:31 98.8 56 16 137/95 (109) 100 Orders Orders Ed Discharge Order (12/09/17 19:58) [facility] Medical Decision Making Medical Screen Exam Complete: Yes Emergency Medical Condition: Yes Differential Diagnosis dentalgia, dental infection, dental fracture Narrative Course 22 year old female here with continued dental pain to the right lower molar. she is reporting symptoms returned shortly after stopping antibiotics. She has an old decayed and fractured right lower molar with surrounding gum erythema and tenderness. This appears to be a very localized infection. She is nontoxic appearing. He was asleep and appeared very comfortable when I entered the room. Patient became upset when she was told to take Tylenol or ibuprofen for the pain. She is to follow-up with a local dentist. Diagnosis Primary Impression: Pain, dental Referrals: Dentist Additional Instructions: Follow-up with dentist Scripts Amoxicillin (Amoxicillin) 500 Mg Cap 500 MG PO TID for Infection for 7 Days, CAP 0 Refills Prov: Manda Barone 12/09/17 Meloxicam (Meloxicam) 15 Mg Tab 15 MG PO DAILY for Arthritis Pain, #14 TAB 0 Refills Prov: Manda Barone 12/09/17 Disposition: 01 DISCHARGE HOME Condition: Stable Manda Barone Dec 09, 2017 19:58
[2017-12-09] MEDS ORDERED: AMOX500C PO (20:05)
== END 2017-12-09 20:09 | disposition home or self-care (01) ==
LOC: PHEFT 18:25
DX: K08.89 Other specified disorders of teeth and supporting structures (principal); F41.9 Anxiety disorder, unspecified; F32.9 Major depressive disorder, single episode, unspecified; R56.9 Unspecified convulsions; F17.200 Nicotine dependence, unspecified, uncomplicated; Z79.899 Other long term (current) drug therapy; Z86.73 Personal history of transient ischemic attack (TIA), and cerebral infarction without residual deficits
CPT/HCPCS: 99283

== ENCOUNTER 2018-01-07 19:22 | Emergency (ER) | payer SELFPAY ==
[~2018-01-07] VITALS: Ht 162.6 cm; Wt 50.4 kg
[~2018-01-07 19:22] MED LIST changes: +AMOX500C PO; -CIPR-9 PO; -DICY10 PO; +MELO15TA20 PO; -NAPR375T4 PO; -PENI500T PO; -PROM25TA10 PO; -ZANT150T2 PO; -ZOFR4TAB PO
[2018-01-07 19:42] VITALS: BP 109/71; PULSE 105; RESP 18; TEMP 99.5; O2SAT 99
[2018-01-07 21:24] VITALS: BP 109/71; PULSE 105; RESP 18; TEMP 99.5
[2018-01-07 21:27] VITALS: BP 109/80; PULSE 68; RESP 16; O2SAT 100
[2018-01-07] MEDS ORDERED: GABA100C4 PO (21:32)
[2018-01-07] MEDS ORDERED: SODIUM CHLORIDE 0.9% FLUSH 10 ML FLUSH IV FLUSH PRN (22:00)
[2018-01-07] MEDS ORDERED: SODIUM CHLOR 0.9% 1000 ML INJ 1,000 ML IV SCH (22:00)
[2018-01-07] MEDS ORDERED: KETOROLAC TROMETHAMINE 30 MG/ML (IVP) VIAL IV PUSH ONE (22:00)
[2018-01-07] MEDS ORDERED: ACETAMINOPHEN 325 MG TAB PO ONE (22:00)
[2018-01-07] MEDS ORDERED: METOCLOPRAMIDE HCL 10 MG/2 ML VIAL IV PUSH ONE (22:00)
--- NOTE | 2018-01-07 22:10 | PD ---
HPI Chief Complaint: Cold / Flu Symptoms Time Seen by Provider: 21:57 Travel History International Travel<30 days: No Contact w/Intl Traveler<30days: No Traveled to known affect area: No History of Present Illness HPI 22-year-old female here for evaluation of fever, cough, generalized malaise, right lower back pain. Symptoms started yesterday. Cough is productive of yellowish sputum. Patient has right lower back pain that radiates on her right posterior leg and described as sharp, worse with movements. No red flags for low back pain. No history of IVDU. No rash. No urinary symptoms. PFSH Past Medical History Hx Anticoagulant Therapy: No Anxiety: Yes Depression: Yes (stopped meds over a year ago) Cerebrovascular Accident: Yes (MULTIPLE TIA) Diabetes: No Diminished Hearing: No Headaches: Yes Neurologic: Yes Reproductive: Yes (OVARIAN CYST) Respiratory: No Seizures: Yes Influenza Vaccination: No ?: Not LMP: 01/01/2018 : 0 Miscarriage: 0 : 0 Past Surgical History Appendectomy: Yes Cholecystectomy: Yes Other Surgery: No Social History Alcohol Use: Yes (Ocassional) Tobacco Use: No (recently quit) Substance Use: No Allergies-Medications (Allergen,Severity, Reaction): Coded Allergies: hydromorphone (Verified Allergy, Intermediate, Itching, 01/07/18) Reported Meds & Prescriptions Reported Meds & Active Scripts Active Meloxicam 15 Mg Tab 15 Mg PO DAILY Reported Gabapentin 100 Mg Cap 100 Mg PO BID Review of Systems Except as stated in HPI: all other systems reviewed are Neg Physical Exam Narrative GENERAL: Well-developed, well-nourished, comfortable, no apparent distress. SKIN: Focused skin assessment warm/dry. No rash. HEAD: Atraumatic. Normocephalic. EYES: Pupils equal and round. No scleral icterus. No injection or drainage. ENT: No nasal bleeding or discharge. Mucous membranes pink and moist. Normal pharynx. Bilateral tympanic membranes and external auditory canals are normal. NECK: Trachea midline. No JVD. No nuchal rigidity. CARDIOVASCULAR: Regular rate and rhythm. No murmur appreciated. RESPIRATORY: No accessory muscle use. Clear to auscultation. Breath sounds equal bilaterally. GASTROINTESTINAL: Abdomen soft, non-tender, nondistended. MUSCULOSKELETAL: No obvious deformities. No clubbing. No cyanosis. No edema. Moderate right SI joint tenderness. No midline vertebral step-off or tenderness. No CVA tenderness. NEUROLOGICAL: Awake and alert. No obvious cranial nerve deficits. Motor grossly within normal limits. Normal speech. PSYCHIATRIC: Appropriate mood and affect; insight and judgment normal. Data Data Last Documented VS Vital Signs Date Time Temp Pulse Resp B/P (MAP) Pulse Ox O2 Delivery O2 Flow Rate FiO2 01/07/18 22:20 99 Room Air 01/07/18 21:27 18 01/07/18 21:24 99.5 105 Orders Orders Complete Blood Count With Diff (01/07/18 22:00) Comprehensive Metabolic Panel (01/07/18 22:00) Urinalysis - C+S If Indicated (01/07/18:00) Iv Access Insert/Monitor (01/07/18:00) Ecg Monitoring (01/07/18 22:00) Oximetry (01/07/18 22:00) Sodium Chlor 0.9% 1000 Ml Inj (Ns 1000 M (01/07/18 22:00) Sodium Chloride 0.9% Flush (Ns Flush) (01/07/18 22:00) Ed Urine Pregnancytest Poc (01/07/18 22:00) Influenzae A/B Antigen (01/07/18 22:00) Group A Rapid Strep Screen (01/07/18 22:00) Chest, Single Ap (01/07/18 ) Acetaminophen (Tylenol) (01/07/18 22:00) Ketorolac Inj (Toradol Inj) (01/07/18 22:00) Metoclopramide Inj (Reglan Inj) (01/07/18 22:00) Urine Culture (01/07/18 22:20) Strep Culture (Group A) (01/07/18 22:20) Ceftriaxone Inj (Rocephin Inj) (01/07/18 23:15) Azithromycin Inj (Zithromax Inj) (01/07/18 23:15) Labs Laboratory Tests Test 01/07/18 22:10 01/07/18 22:20 White Blood Count 4.5 TH/MM3 Red Blood Count 4.31 MIL/MM3 Hemoglobin 13.0 GM/DL Hematocrit 39.0 % Mean Corpuscular Volume 90.7 FL Mean Corpuscular Hemoglobin 30.2 PG Mean Corpuscular Hemoglobin Concent 33.3 % Red Cell Distribution Width 12.9 % Platelet Count 226 TH/MM3 Mean Platelet Volume 8.5 FL Neutrophils (%) (Auto) 53.3 % Lymphocytes (%) (Auto) 30.4 % Monocytes (%) (Auto) 14.4 % Eosinophils (%) (Auto) 1.3 % Basophils (%) (Auto) 0.6 % Neutrophils # (Auto) 2.3 TH/MM3 Lymphocytes # (Auto) 1.4 TH/MM3 Monocytes # (Auto) 0.7 TH/MM3 Eosinophils # (Auto) 0.1 TH/MM3 Basophils # (Auto) 0.0 TH/MM3 CBC Comment DIFF FINAL Differential Comment Blood Urea Nitrogen 6 MG/DL Creatinine 0.70 MG/DL Random Glucose 84 MG/DL Total Protein 7.1 GM/DL Albumin 3.5 GM/DL Calcium Level 8.5 MG/DL Alkaline Phosphatase 80 U/L Aspartate Amino Transf (AST/SGOT) 8 U/L Alanine Aminotransferase (ALT/SGPT) 10 U/L Total Bilirubin 0.3 MG/DL Sodium Level 135 MEQ/L Potassium Level 3.7 MEQ/L Chloride Level 100 MEQ/L Carbon Dioxide Level 28.6 MEQ/L Anion Gap 6 MEQ/L Estimat Glomerular Filtration Rate 127 ML/MIN Urine Collection Type CLEAN CATCH Urine Color YELLOW Urine Turbidity SL CLOUDY Urine pH 6.0 Urine Specific [place] 1.010 Urine Protein NEG mg/dL Urine Glucose (UA) NEG mg/dL Urine Ketones NEG mg/dL Urine Occult Blood TRACE Urine Nitrite NEG Urine Bilirubin NEG Urine Urobilinogen 0.2 MG/DL Urine Leukocyte Esterase SMALL Urine WBC 20-24 /hpf Urine WBC Clumps OCC Urine Squamous Epithelial Cells 0-5 /hpf Urine Bacteria OCC /hpf Urine Mucus OCC /lpf Microscopic Urinalysis Comment CULTURE INDICATED MDM Medical Decision Making Medical Screen Exam Complete: Yes Emergency Medical Condition: Yes Differential Diagnosis Influenza, URI, pneumonia, bronchitis, sciatica, UTI, pyelonephritis Narrative Course Initial vital signs show heart rate of 105, blood pressure 109/71, pulse ox 99% on room air, oral temperature 99.5F. Heart rate improved to 73 after a liter of normal saline IV and Tylenol. CBC: WBC 4.5, hemoglobin 13, hematocrit 39, platelets 226. CMP is unremarkable. UA: Small leukocyte esterase, 20-24 WBCs, occasional WBC clumps, occasional bacteria , culture indicated. Chest x-ray: Right basilar density indicative of bronchopneumonia. Patient was made aware of all findings. She was given a liter of normal saline IV, Tylenol, and Toradol as well as 1 g of IV Rocephin. She is overall very well-appearing and is not in any respiratory distress. She prefers to be discharged home if at all possible. Plan is to discharge her home with a prescription for Ceftin to cover the bronchopneumonia as well as UTI. She was advised to follow-up with a primary care physician this week and to stay hydrated with plenty of fluids and to keep fever under control with Tylenol and ibuprofen. She was informed on when to return to the emergency department patient verbalizes understanding and agreement with plan. Diagnosis Primary Impression: Bronchopneumonia Additional Impression: UTI (urinary tract infection) Qualified Codes: N39.0 - Urinary tract infection, site not specified Referrals: [facility] 3 days Primary Care Physician 3 days Additional Instructions: Follow-up with a primary care physician this week. Stay hydrated with plenty of fluids. Take Tylenol and ibuprofen for fever. Take antibiotic as prescribed. Return to the emergency department for worsening symptoms or any other concerns. Scripts Cefuroxime (Ceftin) 250 Mg Tab 500 MG PO BID for 7 Days, #28 TAB Prov: Alessio Clay MD 01/07/18 Disposition: 01 DISCHARGE HOME Condition: Stable Alessio Clay MD Jan 07, 2018 22:10
[2018-01-07 22:20] VITALS: O2SAT 99
[2018-01-07 22:27] VITALS: BP 101/73; PULSE 72; RESP 16; O2SAT 99
[2018-01-07 22:28] LABS: AUTOMATED NEUTROPHIL # 2.3 TH/MM3 (1.8-7.7); BASOPHIL % 0.6 % (0.0-2.0); EOSINOPHIL # 0.1 TH/MM3 (0-0.4); EOSINOPHIL % 1.3 % (0.0-4.0); LYMPH % 30.4 % (9.0-44.0); LYMPHOCYTE # 1.4 TH/MM3 (1.0-4.8); MEAN CELL VOLUME 90.7 FL (80.0-100.0); MEAN CORPUSCULAR HEMOGLOBIN 30.2 PG (27.0-34.0); MEAN CORPUSCULAR HGB CONC 33.3 % (32.0-36.0); MEAN PLATELET VOLUME 8.5 FL (7.0-11.0); MONO % 14.4 % (0.0-8.0); MONOCYTE # 0.7 TH/MM3 (0-0.9); NEUT % 53.3 % (16.0-70.0); PLATELET COUNT 226 TH/MM3 (150-450); RED BLOOD COUNT 4.31 MIL/MM3 (4.00-5.30); RED CELL DISTRIBUTION WIDTH 12.9 % (11.6-17.2); WHITE BLOOD COUNT 4.5 TH/MM3 (4.0-11.0)
[2018-01-07 22:29] LABS: BILIRUBIN, URINE NEG (NEG); BLOOD, URINE TRACE (NEG); GLUCOSE,URINE NEG (NEG); KETONE, URINE NEG (NEG); NITRITE,URINE NEG (NEG); URINE COLOR YELLOW (YELLW/STRAW); URINE LEUKOCYTE ESTERASE SMALL (NEG)
[2018-01-07 22:35] LABS: CHLORIDE 100 MEQ/L (98-107); SODIUM (NA) 135 MEQ/L (136-145)
[2018-01-07 22:38] LABS: CALCIUM 8.5 MG/DL (8.5-10.1)
[2018-01-07 22:39] LABS: ALBUMIN 3.5 GM/DL (3.4-5.0); BICARBONATE 28.6 MEQ/L (21.0-32.0); BLOOD UREA NITROGEN 6 MG/DL (7-18); GLUCOSE,RANDOM 84 MG/DL (74-106)
[2018-01-07 22:42] LABS: ALT (GPT) 10 U/L (10-53); AST (GOT) 8 U/L (15-37); GLOMERULAR FILTRATION RATE 127 ML/MIN (>89)
[2018-01-07 22:43] LABS: TOTAL BILIRUBIN ADULT 0.3 MG/DL (0.2-1.0); TOTAL PROTEIN 7.1 GM/DL (6.4-8.2)
[2018-01-07 22:45] LABS: ALKALINE PHOSPHATASE 80 U/L (45-117)
--- NOTE | 2018-01-07 22:49 | RADRPT ---
EXAM DATE/TIME: 01/07/2018 22:17 [facility] COMPARISON: No previous studies available for comparison. INDICATIONS : Cough. MEDICAL HISTORY : None. SURGICAL HISTORY : None. ENCOUNTER: Initial ACUITY: 3 days PAIN SCORE: 0/10 LOCATION: Bilateral chest FINDINGS: There is increased density in the right lower lobe most characteristic of a bronchopneumonia. Left tammie ng relatively clear. No significant effusion. No pneumothorax. CONCLUSION: 1. Right basilar density most characteristic of a bronchopneumonia. Clay Carlos MD on January 07, 2018 at 22:45 Board Certified Radiologist. This report was verified electronically.
[2018-01-07 22:53] LABS: BACTERIA, URINE OCC /hpf; MUCUS URINE OCC /lpf (OCC); SQUAMOUS EPITHELIAL CELL URINE 0-5 /hpf (0-5); WHITE BLOOD CELL CLUMPS OCC
[2018-01-07] MEDS ORDERED: cefTRIAXone INJ 1,000 MG in SODIUM CHLORIDE 0.9% INJ 100 ML IV ONE (23:15)
[2018-01-07] MEDS ORDERED: AZITHROMYCIN INJ 500 MG in SODIUM CHLOR 0.9% 250 ML INJ 250 ML IV ONE (23:15)
[2018-01-07] MEDS ORDERED: CEFU1TAB18 PO (23:17)
[2018-01-07 23:32] VITALS: BP 99/63; PULSE 73; RESP 16; O2SAT 97
[2018-01-08 00:09] VITALS: RESP 16
[2018-01-08 00:10] VITALS: BP 103/66
== END 2018-01-08 00:11 | disposition home or self-care (01) ==
LOC: PHED 19:22
DX: J18.0 Bronchopneumonia, unspecified organism (principal); N39.0 Urinary tract infection, site not specified; Z87.891 Personal history of nicotine dependence
CPT/HCPCS: 71045; 80053; 81001; 84703; 85025; 87081; 87086; 87804; 87880; 96365; 96375; 99284; J0696; J1885; J2765; J7030

== ENCOUNTER 2018-03-05 04:33 | Emergency (ER) | payer SELFPAY ==
[~2018-03-05 04:33] MED LIST changes: -AMOX500C PO; +CEFU1TAB18 PO; +GABA100C4 PO
[2018-03-05 04:36] VITALS: BP 123/93; PULSE 61; RESP 16; TEMP 97.9; O2SAT 100
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
[2018-03-05 05:44] LABS: BACTERIA, URINE RARE /hpf; BILIRUBIN, URINE NEG (NEG); BLOOD, URINE NEG (NEG); GLUCOSE,URINE NEG (NEG); KETONE, URINE NEG (NEG); MUCUS URINE FEW /lpf (OCC); NITRITE,URINE NEG (NEG); SQUAMOUS EPITHELIAL CELL URINE 2 /hpf (0-5); URINE COLOR LIGHT-YELLOW (YELLW/STRAW); URINE LEUKOCYTE ESTERASE NEG (NEG)
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
--- NOTE | 2018-03-05 06:30 | RADRPT ---
EXAM DATE/TIME: 03/05/2018 05:58 [facility] COMPARISON: No previous studies available for comparison. INDICATIONS : Cephalgia. RADIATION DOSE: 56.35 CTDIvol (mGy) MEDICAL HISTORY : Seizures. SURGICAL HISTORY : Appendectomy. Cholecystectomy. ENCOUNTER: Initial ACUITY: 1 day PAIN SCALE: 5/10 LOCATION: cranial TECHNIQUE: Multiple contiguous axial images were obtained of the head. Using automated exposure control and adj ustment of the mA and/or kV according to patient size, radiation dose was kept as low as reasonably a chievable to obtain optimal diagnostic quality images. DICOM format image data is available electro nically for review and comparison. FINDINGS: CEREBRUM: The ventricles are normal for age. No evidence of midline shift, mass lesion, hemorrhage or acute in farction. No extra-axial fluid collections are seen. POSTERIOR FOSSA: The cerebellum and brainstem are intact. The 4th ventricle is midline. The cerebellopontine angle i s unremarkable. EXTRACRANIAL: The visualized portion of the orbits is intact. SKULL: The calvaria is intact. No evidence of skull fracture. CONCLUSION: 1. No acute intracranial abnormalities. Clay Carlos MD on March 05, 2018 at 6:26 Board Certified Radiologist. This report was verified electronically.
[2018-03-05] MEDS ORDERED: KETOROLAC TROMETHAMINE 60 MG/2 ML (IM) VIAL IM ONE (06:45)
[2018-03-05] MEDS ORDERED: ORPHENADRINE INJ 60 MG/2 ML AMP IM ONE (06:45)
== END 2018-03-05 06:51 | disposition home or self-care (01) ==
LOC: NEPC 04:33
DX: R51 Headache (principal); S80.01XA Contusion of right knee, initial encounter; F17.210 Nicotine dependence, cigarettes, uncomplicated; G40.909 Epilepsy, unspecified, not intractable, without status epilepticus; V03.90XA Pedestrian on foot injured in collision with car, pick-up truck or van, unspecified whether traffic or nontraffic accident, initial encounter; Y92.481 Parking lot as the place of occurrence of the external cause
CPT/HCPCS: 70450; 73564; 81001; 84703; 96372; 99284; J1885; J2360